=== PATIENT | female | born 1980 | race Two or more races ===

== ENCOUNTER 2025-01-14 04:26 | Inpatient (IN) | payer SELFPAY ==
[2025-01-14] VITALS (117 sets, daily range): BP systolic 00–300; BP diastolic 0–300; PULSE 55–203; RESP 0–54; TEMP 25–36.5; O2SAT 7–100; BMI 29.0
--- NOTE | 2025-01-14 04:35 | XR_ITS ---
Examination: CT brain head without contrast. 2-D sagittal coronal reconstructions Date and time of exam: January 14, 2025, 0511 hrs. Indications: Patient found down unconscious today, cardiopulmonary arrest CTDI: vol (mGy):48.7 DLP: (mGycm):994 Technique: Multiple CT axial sections of the brain have been obtained, 5 mm slice thickness. Contrast has not been administered. 2-D sagittal, coronal reconstructions have been obtained Low dose protocols were performed. One or more of the following dose reduction techniques were used; automated exposure control, adjustment of the mA and/or KV according to patient size, use of iterative reconstruction technique. Findings: No significant ventricular enlargement. Intra-axial or extra-axial hemorrhage density is not seen. No mass effect or midline shift Basal cisterns are not remarkable. Fourth ventricle is midline. Cranial vault intact. Acute ethmoid sinusitis Impression: Negative for acute hemorrhage, mass effect or midline shift As clinically warranted, brain MRI follow-up would best assess for anoxic/ischemic change
--- NOTE | 2025-01-14 04:36 | PD.EDAMS ---
Altered Mental Status RME/HPI General Chief Complaint: Altered Mental Status Stated Complaint: CODE BLUE RME / HPI RME / HPI narrative: Approximately [age]-old female found down for an unknown length of time. Patient originally had pulses with a blood sugar 23. An IV was established and D10 was started. The paramedics the last pulse was in the rig. She was in PEA. CPR was initiated. Patient received 1 mg and epinephrine IV. Paramedics regained pulses upon arrival here to the emergency room. Upon arrival blood sugar was 119. Patient is still unresponsive. They picked the patient up from a house. The people at the house knew very little about this patient. History was obtained from the paramedics and is extremely limited. Patient was intubated and route by paramedics with an 8.0 endotracheal tube. Patient was given Narcan 2 mg intranasally in the field by paramedics with no effect. Related Data Allergies Allergy/AdvReac Type Severity Reaction Status Date / Time No Known Drug Allergies Allergy Verified 01/14/25 04:40 Review of Systems Review of Systems ROS Unobtainable: unobtainable due to mental status ED Exam Narrative Physical exam: Generally patient is comatose, head is normocephalic atraumatic, eyes show pupils to be fixed and dilated, heart tachycardic rate with regular rhythm, oropharynx show the patient be intubated with an 8.0 endotracheal tube placed at 23 cm at the lips with equal breath sounds bilaterally, abdomen slightly distended and tympanic without wound, extremities show muscle wasting to bilateral lower extremities with scar near the right ankle. No edema. Neurologic exam Manjeet Coma Scale is 3 with pupils fixed and dilated. Rectal exam showed dark-colored stool, guaiac positive. Course Quality Measures none Orders Category Date Time Status Bedside COVID-19 Antigen Test NOW Care 01/14/25 05:41 Active Bedside Influenza A&B Antigen Test NOW Care 01/14/25 05:41 Completed EKG (ED ONLY) *Do not use* NOW Care 01/14/25 04:35 Completed Emergency Titration Protocol Stat Care 01/14/25 05:27 Ordered Patterson [Urinary Catheter] QS Care 01/14/25 04:48 Active Insert IV NOW Care 01/14/25 04:48 Active Transfuse,blood/blood products NOW Care 01/14/25 05:[address] abdomen pelvis wo con Stat Exams 01/14/25 05:[address] head/brain wo con Stat Exams 01/14/25 04:35 Taken EKG (ED Only) Stat Exams 01/14/25 04:35 Ordered XR chest 1V post procedure Stat Exams 01/14/25 04:41 Taken ABG [Arterial Blood Gas] Stat Lab 01/14/25 04:39 Ordered Alcohol, Blood Medical Stat Lab 01/14/25 04:30 Completed CBC Stat Lab 01/14/25 04:30 Completed CMP [Comprehensive Metabolic Panel] Stat Lab 01/14/25 04:30 Completed Drug Screen,Urine Stat Lab 01/14/25 04:33 Ordered HCG,Qualitative Serum Stat Lab 01/14/25 04:30 Completed PTT [Partial Thromboplastin Time] Stat Lab 01/14/25 06:07 Ordered Prothrombin Time with INR Stat Lab 01/14/25 06:07 Ordered Sputum Culture and Gram Stain Stat Lab 01/14/25 04:40 Ordered Troponin I Stat Lab 01/14/25 04:30 Completed Type and Screen Stat Lab 01/14/25 05:09 Results UA [Urinalysis] Stat Lab 01/14/25 04:34 Ordered prbc [Red Blood Cells] Stat Lab 01/14/25 05:09 Results Calcium Chloride 10% Abboject 10 ml Med 01/14/25 04:40 Discontinued Sodium Chloride 0.9% [Ns] 100 ml IV X1 Dextrose 50% Syr [D50w Syringe Abboject] Med 01/14/25 04:40 Discontinued 50 ml IVP X1 ONE Norepinephrine/D5W 8mg/250ml [Levophed in D5W 8mg/250ml Med 01/14/25 04:45 Discontinued ] 8 mg in 250 ml IV .STK-MED Norepinephrine/D5W 8mg/250ml [Levophed in D5W 8mg/250ml Med 01/14/25 04:48 Active ] 8 mg in 250 ml IV 0.05 mcg/kg/min Pantoprazole/Ns 80Mg IV Premix [Protonix/NS 80mg IV Med 01/14/25 06:12 Active Premix] 80 mg in 100 ml IV X1 Pantoprazole/Ns 80Mg IV Premix [Protonix/NS 80mg IV Med 01/14/25 06:12 Pending Premix] 80 mg in 100 ml IV X1 Sodium Chloride Rt Jennifer 10% [NS Rt Jennifer 10%] Med 01/14/25 04:38 Discontinued 5 ml INH X1 ONE Vasopressin in Ns Ivpb [Vasostrict/Ns Ivpb] Med 01/14/25 05:40 Discontinued 20 unit in 100 ml IV .STK-MED Vasopressin in Ns Ivpb [Vasostrict/Ns Ivpb] Med 01/14/25 05:39 Active 20 unit in 100 ml IV 0.04 unit/min Mechanical [Volume Ventilator] Stat RT 01/14/25 Active Sputum Induction PRN RT 01/14/25 04:45 Ordered Vital Signs Vital signs: Vital Signs Temperature 96.3 F L 01/14/25 04:29 Pulse Rate 137 H 01/14/25 04:29 Respiratory Rate 15 01/14/25 04:29 Altered Mental Status MDM Narrative MDM Narrative:: I interpreted all labs. EKG shows sinus tachycardia at a rate of [address] segment elevation. Upon arrival the patient's blood sugar was 119. Patient was bolused with 1 amp of D50 IV. On the supposition that the patient was in PEA due to hyperkalemia the patient was given calcium chloride 1000 mg IV. Patient had an episode of hypotension here in the emergency room with a blood pressure of 60s over 20s. Patient was bolused with 1 mg of epinephrine IV which helped increase the blood pressure to 115/74. Hemoglobin came back at 3.4. Patient will be typed and crossed and transfused with 4 units of packed RBCs. Patient has become hypotensive here in the emergency room requiring Levophed drip for a target MAP of 65. Patient is overbreathing the vent but continues to have a Manjeet Coma Scale of 3 without sedation. Ventilator settings given respiratory therapy were tidal volume of 450, rate of 16, FiO2 of 100% and a PEEP of 5. PEEP will be shut off if the patient continues to be hypotensive. Patient will be given uncrossed match blood for the first 2 units in an attempt to increase the blood pressure. Stools were guaiac positive and output from the OG tube showed coffee grounds. CAT scan of the brain showed no bleed no midline shift. Case has been discussed with the hospitalist who discussed that with the resident on-call for the ICU and the patient will require obvious ICU admission for further treatment and evaluation for her alteration of mental status with fixed and dilated pupils with anemia and GI bleed. Procedure note: Because the patient was on vasopressors and requiring additional lines for blood transfusion, I placed a right femoral vein triple-lumen central line catheter using maximum sterile technique and barrier here in the emergency room. Blood return was obtained from all 3 ports and all 3 ports were flushed with normal saline and the line was sutured in place and sterilely dressed. I discussed this case with the ICU who will admit this patient to the hospital for further treatment and evaluation. They are awaiting results of the CT scan of the abdomen and pelvis. Potassium came back at 4.9. CO2 is less than 10. CT scan done of the abdomen and pelvis without contrast is currently pending reading by radiology but did show a moderately sized right-sided pleural effusion. Patient was started on a Protonix drip after being given Protonix 80 mg IV. Patient data External records reviewed:: EMS form Clinical information provided by:: EMS Social determinants that could affect healthcare access:: none Patient has the following chronic illnesses:: unknown How is presenting disease/condition affected by chronic disease/condition?: no chronic disease Evaluation data The following diagnostics were reviewed and interpreted by me:: other (specify) Lab and/or radiology exams considered but not ordered:: none Interpretation Summary: None Medications / Prescriptions Medications or Prescriptions considered but not ordered:: None Medication administrations:: Medication Administration History Norepinephrine/Dextrose (Levophed In D5w 8mg/250ml) 8 mg in 250 mls @ 5.719 mls/hr IV .Q24H PRN; Protocol PRN Reason: PER PROTOCOL Stop: 02/13/25 04:47 Last Titration: 01/14/25 05:28 Dose: 0.5 mcg/kg/min, 57.188 mls/hr Documented By: [email or web address] Titration: 01/14/25 05:18 Dose: 0.11 mcg/kg/min, 12.581 mls/hr Documented By: [email or web address] Titration: 01/14/25 05:13 Dose: 0.09 mcg/kg/min, 10.294 mls/hr Documented By: [email or web address] Titration: 01/14/25 05:08 Dose: 0.07 mcg/kg/min, 8.006 mls/hr Documented By: [email or web address] Admin: 01/14/25 04:57 Dose: 0.05 mcg/kg/min, 5.719 mls/hr Documented By: [email or web address] Vasopressin/Sodium Chloride (Vasostrict/Ns Ivpb) 20 unit in 100 mls @ 12 mls/hr IV .Q8H20M PRN; Protocol PRN Reason: PER PROTOCOL Stop: 02/13/25 05:38 Last Admin: 01/14/25 05:55 Dose: 0.04 unit/min, 12 mls/hr Documented By: NAHUM Pantoprazole Sodium (Protonix/Ns 80mg Iv Premix) 80 mg in 100 mls @ 400 mls/hr IV X1 ONE Stop: 01/14/25 06:26 Pantoprazole Sodium (Protonix/Ns 80mg Iv Premix) 80 mg in 100 mls @ 10 mls/hr IV X1 ONE Stop: 01/14/25 16:11 Discontinued Medications Dextrose (Dextrose 50%-Water Inj 50 Ml Syringe) 50 ml IVP X1 ONE Stop: 01/14/25 04:41 Last Admin: 01/14/25 04:42 Dose: 50 ml Documented By: NAHUM Calcium Chloride 10 ml/ Sodium (Chloride) 110 mls @ 110 mls/hr IV X1 ONE Stop: 01/14/25 05:39 Last Infusion: 01/14/25 05:42 Dose: Infused Documented By: Admin: 01/14/25 04:42 Dose: 110 mls/hr Documented By: NAHUM Norepinephrine/Dextrose (Levophed In D5w 8mg/250ml) Confirm Administered Dose 8 mg in 250 mls @ ud IV .STK-MED ONE Stop: 01/14/25 04:46 Last Admin: 01/14/25 04:59 Dose: Not Given Documented By: NAHUM Non-Admin Reason: Discontinued Vasopressin/Sodium Chloride (Vasostrict/Ns Ivpb) Confirm Administered Dose 20 unit in 100 mls @ ud IV .STK-MED ONE Stop: 01/14/25 05:41 Last Admin: 01/14/25 05:56 Dose: Not Given Documented By: NAHUM Non-Admin Reason: override med Sodium Chloride (Sodium Chloride Rt 10% 15 Ml Nebu) 5 ml INH X1 ONE Stop: 01/14/25 04:39 None Consultations Consultation(s) initiated? (list below): Yes Diagnosis Most likely diagnosis given after review of the tests above:: None Admission Indicated Admission indicated?: indicated Admission Request Was there a request for admission?: Yes Admission Attestation Admission request attestation: Discussed case with [] from Hospitalist service regarding admission. Discussed patients ED course, exam findings, labs, and radiology results. The Hospitalist [agrees,declines] to accept the patient for admission. Disposition Plan Disposition Plan: Admit Critical Care Time Critical Care Time Critical Care Time: Yes Total Critical Care Time (min.): 75 Attestation: Excluding other billable procedures Discharge Plan Plan Patient Disposition: Admit Acute Care w/in Hospital Prescriptions/Referrals Referrals: No Primary/Family,Physician [Primary Care Provider] - In 1 week Problem List Clinical Impression: Cardiopulmonary arrest, Anemia, Hypovolemia, Upper gastrointestinal bleed, Coma Patient/Caregiver Discharge Instructions Print Language: Thai Stand Alone Forms: [facility] Award Info., Patient Portal Info Letter
--- NOTE | 2025-01-14 04:41 | XR_ITS ---
Examination: AP chest single view Technique: AP portable supine chest single view Date and time: January 14, 2025, 0439 hrs. Indications: Hypoxic respiratory failure, patient found down unconscious today post intubation Findings: Orogastric tube is at the origin of the right mainstem bronchus Opacity in the right lung which may represent aspiration pneumonia with layering right pleural fluid Orogastric tube is in the stomach, the tip is below the level of the film Normal heart size Impression: Retract the endotracheal tube 4 cm
[2025-01-14] MEDS: SODIUM CHLORIDE 0.9% IV (04:42)
[2025-01-14] MEDS: CALCIUM CHLORIDE 10% IV (04:42)
[2025-01-14] MEDS: DEXTROSE 50%-WATER INJ 50 ML SYRINGE IVP (04:42)
[2025-01-14 04:46] LABS: Basophils # (Auto) 0.0 Thou/mm3 (0.0-0.2); Basophils % (Auto) 0 % (0-2.5); Eosinophils # (Auto) 0.0 Thou/mm3 (0.0-0.5); Eosinophils % (Auto) 0 % (0-10); Immature Granulocytes Auto 0.37 Thou/mm3 (0.00-0.00); Lymphocytes # (Auto) 2.0 Thou/mm3 (1.0-4.8); Lymphocytes % (Auto) 24 % (10-50); Mean Corpuscular HGB Conc 25.6 g/dl (31.0-37.0); Mean Corpuscular Hemoglobin 21.0 pg (25.0-35.0); Mean Corpuscular Volume 82 fL (80-100); Monocytes # (Auto) 0.5 Thou/mm3 (0.0-0.8); Monocytes % (Auto) 6 % (0-12); Neutrophils # (Auto) 5.6 Thou/mm3 (1.8-7.7); Neutrophils % (Auto) 66 % (37-80); Nucleated Red Blood Cell # 0.71 Thou/mm3 (0.00-0.00); Nucleated Red Blood Cell % 8 /100 WBC (0); Platelet Count 84 Thou/mm3 (140-440); RDW Standard Deviation 78.3 fL (36.4-46.3); Red Blood Count 1.62 Miln/mm3 (4.00-5.20); White Blood Count 8.4 Thou/mm3 (3.6-11.0)
[2025-01-14] MEDS: Norepinephrine/D5W 8mg/250ml 8 MG/250 ML BAG 5.719 MG IV (04:57)
[2025-01-14 04:58] LABS: Hematocrit 13.3 % (36.0-46.0); Hemoglobin 3.4 g/dL (12.0-16.0)
--- NOTE | 2025-01-14 05:00 | XR_ITS ---
Examination: CT abdomen and pelvis without contrast. Coronal 3-D reconstructions. Sagittal 2-D reconstructions. Date and time of exam: January 10002024, 0513 hrs. Indications: Patient found down unconscious today with abdominal discomfort and distention CTDI: vol (mGy): 11.5 DLP: (mGycm): 630 Technique: Axial images of the abdomen have been obtained, 3 mm slice thickness Intravenous contrast material has not been administered. Low dose protocols were performed. One or more of the following dose reduction techniques were used; automated exposure control, adjustment of the mA and/or KV according to patient size, use of iterative reconstruction technique. Findings: Bibasilar pneumonia Large right mild left pleural effusions Cirrhosis, liver nodular in contour Abnormal radiodensity throughout the liver which could represent numerous small metastases versus small cystlike lesions Absent gallbladder Mild ascites Spleen is not enlarged Orogastric tube in the stomach No pancreatic mass No renal or ureteral calculi, no hydronephrosis There are fluid distended small bowel loops Aorta normal size No pelvic mass Urinary bladder is contracted around a Patterson catheter Partial visualization of what appears to be normal appendix coronal image 73 Impression: Bibasilar pneumonia Large right pleural effusion Cirrhosis with markedly abnormal radiodensity throughout the liver, recommend MRI abdomen liver follow-up pre and postcontrast to exclude numerous hepatic lesions, either multifocal primary hepatocellular carcinoma or hepatic metastases Mild ascites Fluid distended small bowel loops, consider ileus enteritis early small bowel obstruction not excluded, clinical correlation advised Air distended right colon, also clinical correlation advised
--- NOTE | 2025-01-14 05:33 | PRELIM_ITS ---
CT scan of the head without intravenous contrast (axial sections with sagittal and coronal reformats). January 14, 2025 0511 hours Clinical History: Altered mental status Comparison: None Findings: There is involutional atrophy of the cerebral hemispheres and cerebellum. There is no intracranial hemorrhage, extra-axial collection, mass, mass-effect or midline shift. There is good sanford-white differentiation. There is no CT evidence of acute large vascular territorial infarct. Ventricles are not enlarged or effaced. Visualized paranasal sinuses and tympanomastoid cavities are clear for bilateral posterior ethmoid air cell and sphenoid sinus fluid/mucosal thickening dependently. The bony calvarium is intact. Impression: No intracranial hemorrhage, mass-effect or midline shift. No CT evidence of acute large vascular territorial infarct. Report Electronically Signed By: Florencio Navarro 01/14/2025 5:32:09 AM [EST]
[2025-01-14] MEDS: VASOPRESSIN IN NS IVPB 20 UNIT/100 ML BAG 12 UNIT IV (05:55)
[2025-01-14 05:56] LABS: HCG,Qualitative Serum Negative
[2025-01-14 06:02] LABS: Alanine Aminotransferase 167 U/L (10-49); Albumin, Serum 2.2 gm/dL (3.5-5.0); Albumin/Globulin Ratio 0.8 (1.2-2.2); Alcohol, Blood Medical 292.6 mg/dL (0-10.0); Alkaline Phosphatase 169 U/L (46-116); Anion Gap 30 (7-16); BUN/Creatinine Ratio 11 Ratio (12-20); Bilirubin,Total 3.9 mg/dL (0.3-1.2); Blood Urea Nitrogen 17 mg/dL (9-23); Calcium 8.0 mg/dL (8.3-10.6); Calcium (Corrected) 9.4 mg/dL (8.5-10.1); Chloride 99 mMol/L (98-107); Creatinine (Component) 1.6 mg/dL (0.6-1.3); Estimated Creatinine Clearance 35.1 mL/min (>60); Globulin 2.9 gm/dL (2.3-3.5); Glucose 245 mg/dL (74-106); Osmolality,Calculated 287 (275-295); Potassium 4.9 mMol/L (3.4-5.1); Sodium 139 mMol/L (136-145); Total Protein 5.1 gm/dL (5.7-8.2); Troponin I 0.022 ng/mL (0.0-0.045); eGFR 42 See Note
[2025-01-14 06:06] LABS: Carbon Dioxide < 10.0 mMol/L (20.0-31.0)
--- NOTE | 2025-01-14 06:09 | EVENTNT_ITS ---
Documentation for date of: 01/14/25 Event Note Event Note: Received a call regarding a patient for potential ICU admission. The ED physician mentioned that the full workup is not yet complete, but he wanted to provide a heads-up with a sign-out. The patient is an estimated [age]-old female who was found unresponsive for an unknown duration. The history is very limited, primarily taken from the EMS sign-out and chart review. The individuals at the house had minimal information about the patient. Upon EMS arrival, the patient's blood sugar was 23, and she initially had a pulse. An IV was established, and D10 was administered. However, the patient lost her pulse en route and went into PEA. CPR was initiated, and 1 mg of epinephrine was administered. ROSC was achieved upon arrival at the emergency department. On arrival, the patient's blood sugar was 119, but she remained unresponsive with a GCS of 3 and was intubated. Her pupils were fixed and dilated. The patient became hypotensive in the emergency department, prompting the initiation of a Levophed drip. The ED physician noted that additional vasopressin may be required as the patient's pressor support needs continue to increase. The patient tested guaiac positive, and an OG tube was placed, which showed coffee-ground emesis. The patient will receive uncrossed matched blood for the first two units as an attempt to improve her blood pressure. The CMP is still pending, but the CBC revealed a hemoglobin level of 3.4 and hematocrit of 13.3. An ABG, CMP, toxicology screen, and CT scans of the abdomen, pelvis, and chest are still pending. A preliminary head CT was negative for hemorrhage, mass, or midline shift. The case was discussed with the attending physician, and the decision was made to wait for the remaining labs and Abdomen/Pelvis CT results before proceeding for concern of major hemorrhagic bleed of undetermined cause which may require higher level of care. We will sign out the case to a day shift, and hopefully by that time, the CT results and additional lab reports should be available. Patient care was discussed with attending physician Dr. Meme Castano MD PGY-2 I have carefully reviewed this document. Due to imperfections in the voice softw are, there could be grammatical errors including phonetic/typographic errors. This in no way compromises the medical care the patient is receiving
[2025-01-14 06:16] LABS: Aspartate Amino Transferase 1092 U/L (0-34)
[2025-01-14] MEDS: PANTOPRAZOLE/NS 80MG IV PREMIX 80 MG/100 ML BAG 400 MG IV (06:20)
--- NOTE | 2025-01-14 06:34 | PRELIM_ITS ---
CT scan of the abdomen and pelvis without intravenous contrast (axial sections with sagittal and coronal reformats) January 14, 2025 0513 hours Clinical History: abdominal distention Comparison:No prior study is available for comparison. Findings: There is a moderate right and small left pleural effusions with associated compressive atelectasis of bilateral lower lobes. There is consolidation in the left lower lobe. The liver demonstrates an innumerable hypodensities and nodular contour, likely representing cirrhosis. The nasogastric catheter is appropriately positioned with its tip in the stomach.There is surgical clips at the gallbladder bed with a stump/GB-like structure noted. The pancreas, spleen, kidneys and adrenals are unremarkable.on this noncontrast study. There is thickening of the duodenal and proximal jejunal wall with fat stranding. No evidence of bowel obstruction. The appendix is within normal limits. There is no mesenteric or retroperitoneal adenopathy. A Patterson catheter is seen in the urinary bladder.There is no free air. There is mild ascites. The uterus and adnexa are unremarkable. The osseous structures are unremarkable. Impression: Innumerable hypodensities which may represent extensive cystic disease versus metastasis. Recommend clinical correlation, comparison with prior studies and follow-up with contrast-enhanced CT/ MRI, if clinically indicated. Liver Cirrhosis. Enteritis. Mild ascites Moderate right and small left pleural effusions. Consolidation in the left lower lobe; pneumonia cannot be excluded. Recommend clinical correlation and follow-up. Other findings as described above. Report Electronically Signed By: Addy Jasso 01/14/2025 6:33:50 AM [EST]
[2025-01-14] MEDS: PANTOPRAZOLE/NS 80MG IV PREMIX 80 MG/100 ML BAG 10 MG IV (06:41)
[2025-01-14 06:43] LABS: Base Excess -28 (-3-3); HCO3 6 mEq/L (20-26); Inspired Oxygen, FIO2 100 %; O2 Saturation 61 % (91-98); PCO2 44 mmHg (32.0-48.0)
[2025-01-14 06:45] LABS: Path Review Blood Smear Sent to Pathologist
[2025-01-14 06:46] LABS: pH, Arterial 6.72 (7.35-7.45)
[2025-01-14 06:47] LABS: Allen Test Not Performed; PO2 54 mmHg (83-108); Puncture Site Left Radial
[2025-01-14 06:52] LABS: INR 1.9 (0.9-1.3); Partial Thromboplastin Time 49.5 Seconds (22.0-36.0); Prothrombin Time 18.8 Seconds (9.0-12.2)
[2025-01-14] MEDS: ROCURONIUM INJ 10 MG/ML VIAL 10 ML 60 MG IVP (07:30)
--- NOTE | 2025-01-14 07:51 | PC.NURSE ---
PER DR. Merrick FRAUSTO OK TO GIVE 3RD UNIT OF PRB'S AT RATE OF 999ML/HR.
[2025-01-14] MEDS: RINGERS LACTATED 1000 ML 1,000 ML 999 ML IV (08:30)
[2025-01-14] MEDS: SODIUM BICARB INJ 8.4% 1 mEq/ML 50 ML VIAL 50 MEQ IV ×4 (08:30→17:57)
[2025-01-14 08:38] LABS: Basophils # (Auto) 0.1 Thou/mm3 (0.0-0.2); Basophils % (Auto) 1 % (0-2.5); Eosinophils # (Auto) 0.0 Thou/mm3 (0.0-0.5); Eosinophils % (Auto) 0 % (0-10); Hematocrit 32.4 % (36.0-46.0); Hemoglobin 9.1 g/dL (12.0-16.0); Immature Granulocytes Auto 0.16 Thou/mm3 (0.00-0.00); Lymphocytes # (Auto) 1.9 Thou/mm3 (1.0-4.8); Lymphocytes % (Auto) 24 % (10-50); Mean Corpuscular HGB Conc 28.1 g/dl (31.0-37.0); Mean Corpuscular Hemoglobin 25.5 pg (25.0-35.0); Mean Corpuscular Volume 91 fL (80-100); Monocytes # (Auto) 0.2 Thou/mm3 (0.0-0.8); Monocytes % (Auto) 3 % (0-12); Neutrophils # (Auto) 5.3 Thou/mm3 (1.8-7.7); Neutrophils % (Auto) 70 % (37-80); Nucleated Red Blood Cell # 0.99 Thou/mm3 (0.00-0.00); Nucleated Red Blood Cell % 13 /100 WBC (0); RDW Standard Deviation 63.1 fL (36.4-46.3); Red Blood Count 3.57 Miln/mm3 (4.00-5.20); White Blood Count 7.6 Thou/mm3 (3.6-11.0)
[2025-01-14 08:43] LABS: Platelet Count 68 Thou/mm3 (140-440); Slide Review Platelets confirmed
[2025-01-14 09:02] LABS: Alanine Aminotransferase 530 U/L (10-49); Albumin, Serum 2.4 gm/dL (3.5-5.0); Albumin/Globulin Ratio 0.7 (1.2-2.2); Alkaline Phosphatase 194 U/L (46-116); Anion Gap 24 (7-16); BUN/Creatinine Ratio 11 Ratio (12-20); Bilirubin,Total 4.0 mg/dL (0.3-1.2); Blood Urea Nitrogen 19 mg/dL (9-23); Calcium 8.5 mg/dL (8.3-10.6); Calcium (Corrected) 9.8 mg/dL (8.5-10.1); Chloride 101 mMol/L (98-107); Creatinine (Component) 1.8 mg/dL (0.6-1.3); Estimated Creatinine Clearance 31.2 mL/min (>60); Globulin 3.5 gm/dL (2.3-3.5); Glucose 123 mg/dL (74-106); Magnesium 2.0 mg/dL (1.6-2.6); Osmolality,Calculated 273 (275-295); Potassium 4.9 mMol/L (3.4-5.1); Sodium 135 mMol/L (136-145); Total Protein 5.9 gm/dL (5.7-8.2); eGFR 36 See Note
[2025-01-14 09:09] LABS: Aspartate Amino Transferase 4045 U/L (0-34)
[2025-01-14 09:11] LABS: Ammonia 577 uMol/L (11-32)
[2025-01-14 09:12] LABS: Carbon Dioxide < 10.0 mMol/L (20.0-31.0); Phosphorous 10.7 mg/dL (2.4-5.1); Troponin I 0.100 ng/mL (0.0-0.045)
[2025-01-14] MEDS: ALBUTEROL/IPRATROPIUM (Duoneb) RT SOL 3 ML NEBU INH (09:19)
[2025-01-14 09:22] LABS: Base Excess -28 (-3-3); HCO3 4 mEq/L (20-26); Inspired Oxygen, FIO2 100 %; O2 Saturation 93 % (91-98); PCO2 26 mmHg (32.0-48.0); PO2 95 mmHg (83-108)
[2025-01-14 09:23] LABS: Allen Test Performed/OK; Puncture Site Right Brachial
[2025-01-14 09:25] LABS: pH, Arterial 6.83 (7.35-7.45)
[2025-01-14 09:33] LABS: Hepatitis A Antibody IgM Non Reactive (Non React); Hepatitis B Core Antibody IgM Non Reactive (Non React); Hepatitis B Surface Antigen Non Reactive (Non React); Hepatitis C Antibody Reactive (Non React)
--- NOTE | 2025-01-14 09:36 | PC.SS ---
ORTHOPEDIC SHOE [employer]TER informed by ICU charge nurse presence of patient without identification. ORTHOPEDIC SHOE [employer]TER contacted dispatch to confirm which ambulance service brought patient to ED. Dispatch will review records to confirm ambulance transporter. Once transport confirmed, ORTHOPEDIC SHOE [employer]TER will obtain address to submit request to law enforcement for department assistance to return to address to locate family/friends of the patient to contact ORTHOPEDIC SHOE [employer]TER.
--- NOTE | 2025-01-14 10:17 | PC.SS ---
Addendum entered by Aubree Bryson 01/14/25 10:35: SS attempted to check patient's persona artefacts in the attempt to locate identification. None found, patient only in position of shorts and T-shirt. No phone, no wallet present. Addendum entered by Aubree Bryson 01/14/25 10:32: SS follow up note; SS was contacted by Sofia from [facility] regarding patient found down in a home. Sofia provided physical address from which patient was picked up from [facility] address provided: [address] SS contacted [place] [employer] and requested department assistance. [place] [employer] dispatch will send available unit to confirm address and attempt to locate/identify next of kin in order to contact SS. Original Note: SS follow up note; SS contacted [facility] and spoke to Sofia. SS provided details of event, Sofia informed SS she would contact Ambulance unit covering at the time and would contact SS.
[2025-01-14] MEDS: Norepinephrine/D5W 8mg/250ml 8 MG/250 ML BAG 36.6 MG IV (10:28)
[2025-01-14] MEDS: RINGERS LACTATED 500 ML 500 ML 999 ML IV (10:36)
[2025-01-14 10:42] LABS: Path Review Blood Smear Sent to Pathologist
[2025-01-14] MEDS: OCTREOTIDE ACET INJ 1,000 MCG in SODIUM CHLORIDE 0.9% 100 ML 5.1 MCG IV (11:10)
[2025-01-14] MEDS: OCTREOTIDE ACET INJ 50 mCg/ML VIAL IV (11:10)
[2025-01-14 11:51] LABS: Lactate (Lactic Acid) 27.0 mMol/L (0.4-2.0)
--- NOTE | 2025-01-14 11:55 | PC.SS ---
Patient's friend, Kartik Martel [phone] arrived at ICU to identify patient. Friend informed SS that [place] PD arrived at residents instructing friend to make contact with SS at [facility]. Friend reports patient had been living at his residents for approximately one year. At baseline patient is ambulatory on Room air and able to complete ADL's independently. Friend reports that patient heavenly engage in Alcohol consumption. Friend provided Number to patient's brother Virgil [phone]. Friend will attempt to locate patient's identification and insurance card, if retrieved friend will bring items to ICU. Friend stated that prior to relocating to [place] patient was residing in [place]. SS to attempt phone contact with patient's brother Virgil. ICU charge Nurse provided with update. SS present as ICU Intens[facility] spoke to Patient's friend to obtain understanding of patient's alcohol consumption and events leading to admission.
[2025-01-14 11:56] LABS: Basophils # (Auto) 0.0 Thou/mm3 (0.0-0.2); Basophils % (Auto) 1 % (0-2.5); Eosinophils # (Auto) 0.0 Thou/mm3 (0.0-0.5); Eosinophils % (Auto) 0 % (0-10); Hematocrit 28.1 % (36.0-46.0); Immature Granulocytes Auto 0.14 Thou/mm3 (0.00-0.00); Lymphocytes # (Auto) 1.3 Thou/mm3 (1.0-4.8); Lymphocytes % (Auto) 18 % (10-50); Mean Corpuscular HGB Conc 29.5 g/dl (31.0-37.0); Mean Corpuscular Hemoglobin 25.9 pg (25.0-35.0); Mean Corpuscular Volume 88 fL (80-100); Monocytes # (Auto) 0.4 Thou/mm3 (0.0-0.8); Monocytes % (Auto) 5 % (0-12); Neutrophils # (Auto) 5.4 Thou/mm3 (1.8-7.7); Neutrophils % (Auto) 74 % (37-80); Nucleated Red Blood Cell # 1.18 Thou/mm3 (0.00-0.00); Nucleated Red Blood Cell % 16 /100 WBC (0); RDW Standard Deviation 53.6 fL (36.4-46.3); Red Blood Count 3.20 Miln/mm3 (4.00-5.20); White Blood Count 7.2 Thou/mm3 (3.6-11.0)
[2025-01-14] MEDS: ALBUMIN HUMAN-KJDA 25% IVPB 25 GM/100 ML BTL IV ×3 (11:57→18:17)
--- NOTE | 2025-01-14 12:01 | ESHP_ITS ---
Documentation for date of: 01/14/25 [facility] History of Present Illness Chief complaint: AMS History of present illness: This patient is a 44-year-old female with unknown past medical history was brought in by EMS on 01/14/2025 with chief complaint of altered mental status. Based on EMS and nursing from the ER, patient called EMS that she was not feeling well and while EMS went to see the patient they found her altered with a blood sugar of 29. 2 ampoules of D50 were given. Patient lost her pulses while en route to the ER and CPR was performed and they achieved ROSC. Patient was found obtunded in the ED with a GCS of 3 and was intubated to protect airway. Patient also rec narcan. Her blood pressure was unrecordable and was found to be 63/25 with pulse 137 temperature 96.3. Patient was eventually placed on Elizabeth hugger and started on levo and vasopressin with right femoral IJ line. Patient was bleeding from OG tube while seen during assessment. Patient received 2 units of PRBC in the ED. Limited history available. PMH unknown PSH unknown SH: Drinks alcohol moderately Allerg: unknown Home meds: unknown Patient's brother, Virgil's point of contact at [phone]. In the ED, patient's blood pressure was 63/25, heart rate 137, respiratory rate 15 and temperature is 96.3. Patient was intubated and mechanically ventilated. Labs revealed White count 8.4, hemoglobin 3.4--> downtrended to 5.4. Platelet count from 84--> 17. INR from 1.9-2.5. Fibrinogen 88, D-dimer> 3820. ABGs reveal pH 6.72--> 6.81. pCO2 44. pO2 60. Bicarb 17 chemistry panel showed initial sodium 139--> 148. Potassium 4.9--> 5.2. Bicarb less than 10. Anion gap increased to 40. BUN 21. Creatinine jumped up from 1.6-2.2. GFR 27. Blood glucose 361. Lactic acid from 27-31. Phosphorus 12.5. T. bili 2.3. AST from 1092--> 4045. Ammonia 577. Troponin I 0.100--> 0.138. Albumin 2.0. EtOH 292.6. Hep panel showed hep C antibody reactive. Head CT showed no acute pathology. Chest x-ray showed opacity in the right lung likely aspiration. CT abdomen showed bibasilar pneumonia, large right pleural effusion, cirrhosis with abnormal radiodensity throughout the liver. Possible hepatic mets. Mild ascites. Fluid distended small bowel loops. Air distended right colon. Chest x-ray showed significant bilateral pneumonia. Blood cultures pending as well as sputum cultures. Patient is admitted for acute encephalopathy likely in the setting of decompensated liver cirrhosis, acute GI bleed and alcoholic hepatitis. Review of Systems Review of Systems ROS Unobtainable: unobtainable due to mental status and due to endotracheal tube Past Medical History Social History ALCOHOL: Current Exam Vital Signs Temp Pulse Resp BP Pulse Ox O2 Del Method FiO2 97.1 F 96 36 H 116/42 L 94 L Mechanical Ventilation 100 01/14/25 11:41 01/14/25 11:41 01/14/25 11:41 01/14/25 11:41 01/14/25 11:41 01/14/25 07:25 01/14/25 10:16 Narrative Exam GENERAL APPEARANCE: Patient is intubated and mechanically ventilated. HEENT: Icteric, AT. dry mucus membrane. Pupils dilated sluggish reaction to light EOMI, Pallor and jaundice, oropharynx filled with blood alongwith Et tube. NECK: Supple without lymphadenopathy. No stiffness or restricted ROM. HEART: sinus tacycardia with regular rhythm, normal S1/S2, no m/r/g LUNGS: B/l basal crackles on both sides ,wheezing more on Rt side ABDOMEN: Soft, firm and distended with hypoactive bowel sounds. BACK: No CVAT, no obvious deformity. EXTREMITIES: Without cyanosis, clubbing or edema. NEUROLOGICAL: GCS 3T. Intubated and mech ventilated Skin: Warm and dry without any rash. Psych: intubated unable to assess Results: Labs 01/14/25 18:08 01/14/25 14:56 Labs: Short CBC 01/14/25 01/14/25 Range/Units 04:30 08:15 WBC 8.4 7.6 (3.6-11.0) Thou/mm3 Hgb 3.4 L* 9.1 L D (12.0-16.0) g/dL Hct 13.3 L* 32.4 L D (36.0-46.0) % Plt Count 84 L 68 L (140-440) Thou/mm3 BMP 01/14/25 01/14/25 04:30 08:15 Sodium 139 135 L Potassium 4.9 4.9 Chloride 99 101 Carbon Dioxide < 10.0 L* < 10.0 L* BUN 17 19 Creatinine 1.6 H 1.8 H Glucose 245 H 123 H D Calcium 8.0 L 8.5 Cardiac Enzymes 01/14/25 01/14/25 Range/Units 04:30 08:15 Troponin I 0.022 0.100 H* (0.0-0.045) ng/mL Liver Function 01/14/25 01/14/25 Range/Units 04:30 08:15 Total Bilirubin 3.9 H 4.0 H (0.3-1.2) mg/dL AST 1092 H* 4045 H* (0-34) U/L ALT 167 H 530 H* (10-49) U/L Alkaline Phosphatase 169 H 194 H D (46-116) U/L Albumin 2.2 L 2.4 L (3.5-5.0) gm/dL ABG Interpretation ABG results: 01/14/25 01/14/25 06:38 09:16 ABG pH 6.72 L* 6.83 L* D ABG pCO2 44 26 L D ABG pO2 54 L* 95 D ABG HCO3 6 L* 4 L* ABG O2 Saturation 61 L 93 ABG Base Excess -28 L -28 L Quality Measures Quality Measures none Medications Home Medications and Allergies Allergies Allergy/AdvReac Type Severity Reaction Status Date / Time No Known Drug Allergies Allergy Verified 01/14/25 04:40 Visit Medications Albumin Human (Albumin Human-Kjda 25% Ivpb 25 Gm/100 Ml Btl) 25 gm IV BID JENNIFER Stop: 02/13/25 08:59 Albuterol/Ipratropium (Albuterol/Ipratropium (Duoneb) Rt Jennifer 3 Ml Nebu) 3 ml INH Q2HR PRN PRN Reason: SHORTNESS OF BREATH OR WHEEZE Stop: 02/13/25 08:54 Dextrose (Dextrose 50%-Water Inj 50 Ml Syringe) 25 ml IV Q15MIN PRN PRN Reason: BG 50-70 responsive npo pt Stop: 02/13/25 08:22 Dextrose (Dextrose 50%-Water Inj 50 Ml Syringe) 50 ml IV Q15MIN PRN PRN Reason: BG <50 OR BG <70 & pt unresponsive Stop: 02/13/25 08:22 Folic Acid (Folic Acid Inj 1 Mg/0.2 Ml) 1 mg IVP QDAY JENNIFER Stop: 02/13/25 08:59 Glucagon (Glucagon Inj 1 Mg Vial) 1 mg IM Q15MIN PRN PRN Reason: BG <70, and no IV access Hydrocortisone Sodium Succinate (Hydrocortisone Sod Succ Inj 100 Mg 2 Ml Vial) 50 mg IV Q6HR JENNIFER Stop: 02/13/25 11:59 Norepinephrine/Dextrose (Levophed In D5w 8mg/250ml) 8 mg in 250 mls @ 5.719 mls/hr IV .Q24H PRN; Protocol PRN Reason: PER PROTOCOL Stop: 02/13/25 04:47 Last Admin: 01/14/25 10:28 Dose: 0.32 mcg/kg/min, 36.6 mls/hr Vasopressin/Sodium Chloride (Vasostrict/Ns Ivpb) 20 unit in 100 mls @ 12 mls/hr IV .Q8H20M PRN; Protocol PRN Reason: PER PROTOCOL Stop: 02/13/25 05:38 Last Titration: 01/14/25 07:25 Dose: 0.04 unit/min, 12 mls/hr Pantoprazole Sodium (Protonix/Ns 80mg Iv Premix) 80 mg in 100 mls @ 10 mls/hr IV X1 ONE Stop: 01/14/25 16:26 Last Admin: 01/14/25 06:41 Dose: 10 mls/hr Pantoprazole Sodium (Protonix/Ns 80mg Iv Premix) 80 mg in 100 mls @ 10 mls/hr IV Q10H JENNIFER Stop: 01/17/25 14:29 Octreotide Acetate 1,000 mcg/ (Sodium Chloride) 102 mls @ 5.1 mls/hr IV .Q20H JENNIFER; Protocol Stop: 01/19/25 08:02 Last Admin: 01/14/25 11:10 Dose: 50 mcg/hr, 5.1 mls/hr Azithromycin 500 mg/ Sodium (Chloride) 250 mls @ 250 mls/hr IV QDAY JENNIFER Stop: 01/21/25 08:14 Piperacillin/Tazobactam/Dextrose (Zosyn) 3.375 gm in 50 mls @ 12.5 mls/hr IV Q8HR JENNIFER; Protocol Stop: 01/21/25 10:22 Ondansetron HCl (Ondansetron Inj 2 Mg/Ml Inj 2 Ml) 4 mg IVP Q6H PRN; Protocol PRN Reason: NAUSEA OR VOMITING Stop: 02/13/25 07:56 Thiamine HCl (Thiamine Inj 100 Mg/Ml Vial 2 Ml) 100 mg IVP QDAY JENNIFER Stop: 02/13/25 08:59 Discontinued Medications Albuterol/Ipratropium (Albuterol/Ipratropium (Duoneb) Rt Jennifer 3 Ml Nebu) 3 ml INH X1 ONE Stop: 01/14/25 08:56 Last Admin: 01/14/25 09:19 Dose: 3 ml Dextrose (Dextrose 50%-Water Inj 50 Ml Syringe) 50 ml IVP X1 ONE Stop: 01/14/25 04:41 Last Admin: 01/14/25 04:42 Dose: 50 ml Calcium Chloride 10 ml/ Sodium (Chloride) 110 mls @ 110 mls/hr IV X1 ONE Stop: 01/14/25 05:39 Last Infusion: 01/14/25 05:42 Dose: Infused Pantoprazole Sodium (Protonix/Ns 80mg Iv Premix) 80 mg in 100 mls @ 400 mls/hr IV X1 ONE Stop: 01/14/25 06:26 Last Infusion: 01/14/25 06:35 Dose: Infused Ceftriaxone Sodium/Dextrose (Rocephin/D5w 1gm Iv Premix) 1 gm in 50 mls @ 100 mls/hr IV QDAY JENNIFER Stop: 01/21/25 08:02 Ceftriaxone Sodium/Dextrose (Rocephin/D5w 1gm Iv Premix) 1 gm in 50 mls @ 100 mls/hr IV QDAY JENNIFER Stop: 01/21/25 08:19 Lactated Ringer's (Lactated Ringers) 1,000 mls @ 999 mls/hr IV .Q1H1M ONE Stop: 01/14/25 09:24 Last Admin: 01/14/25 08:30 Dose: 999 mls/hr Lactated Ringer's (Lactated Ringers) 500 mls @ 999 mls/hr IV .Q31M ONE Stop: 01/14/25 10:49 Last Admin: 01/14/25 10:36 Dose: 999 mls/hr Piperacillin/Tazobactam/Dextrose (Zosyn) 3.375 gm in 50 mls @ 100 mls/hr IV X1 ONE; Protocol Stop: 01/14/25 11:29 Octreotide Acetate (Octreotide Acet Inj 50 Mcg/Ml Vial) 50 mcg IV X1 ONE Stop: 01/14/25 08:02 Last Admin: 01/14/25 11:10 Dose: 50 mcg Octreotide Acetate (Octreotide Acet Inj 50 Mcg/Ml Vial) 50 mcg IV X1 ONE Stop: 01/14/25 11:01 Rocuronium [place] (Rocuronium Inj 10 Mg/Ml Vial 10 Ml) 60 mg IVP X1 ONE Stop: 01/14/25 07:24 Last Admin: 01/14/25 07:30 Dose: 60 mg Sodium Bicarbonate (Sodium Bicarb Inj 8.4% 1 Meq/Ml 50 Ml Vial) 50 meq IV X1 ONE Stop: 01/14/25 08:03 Last Admin: 01/14/25 08:30 Dose: 50 meq Sodium Bicarbonate (Sodium Bicarb Inj 8.4% 1 Meq/Ml 50 Ml Vial) 50 meq IV X1 ONE Stop: 01/14/25 09:13 Last Admin: 01/14/25 09:15 Dose: 50 meq Sodium Bicarbonate (Sodium Bicarb Inj 8.4% 1 Meq/Ml 50 Ml Vial) 50 meq IV X1 ONE Stop: 01/14/25 09:37 Last Admin: 01/14/25 09:40 Dose: 50 meq Sodium Chloride (Sodium Chloride Rt 10% 15 Ml Nebu) 5 ml INH X1 ONE Stop: 01/14/25 04:39 Sodium Chloride (Sodium Chloride Rt 10% 15 Ml Nebu) 5 ml INH X1 ONE Stop: 01/14/25 08:09 Assessment & Plan Plan This patient is a 44-year-old female with unknown past medical history was brought in by EMS on 01/14/2025 with chief complaint of altered mental status.Patient is admitted to ICU for acute encephalopathy likely in the setting of decompensated liver cirrhosis, acute GI bleed and alcoholic hepatitis. Neurology #Acute encephalopathy likely multifactorial, DDx: Metabolic due to hypoglycemia toxic due to alcohol, ischemic, hyperammonemia Diagnostic Test: -Head CT showed no acute pathology. -BG 29 mg/dl. Ammonia 577.EtOH 292.6. Treatment Plan: 2 ampoules of D50 given Blood sugar checks Q1 hourly Intubated for airway protection Treatment Review: Blood sugars have improved Neurological status remains unchanged #Hyperamonemia - Ammonia: 577 Plan - Will likely consider placing rectal tube , decompress gut and give Lactulose NH Cardiovascular #Shock likely mixed hypovolemic and distributive DDx: Blood loss due to GI bleed in the setting of decompensated liver cirrhosis, infection possibly GI tract Diagnostic Test: Hemoglobin 3.4--> downtrended to 5.4. Platelet count from 84--> 17. Patient was started on Levophed and vasopressin in the ED. Patient received 2 L of fluid LR. ABGs reveal pH 6.72--> 6.81. pCO2 44. pO2 60. Treatment Plan: Continue Levophed, epinephrine and vasopressin titrate to maintain MAP above 65 Give fluids as necessary Treating infection with antibiotics Zosyn and azithromycin Massive transfusion protocol given: 6 PRBC 7 PRBC transfusing, 2 FFP's and 1 FFP ready, 4 cryoprecipitate's given and fifth cryoprecipitate running. 5 ready. Total 12 cryoprecipitate ordered. CRRT Treatment Review: Follow-up with H&H Q4 hourly Follow-up with lactic acid Follow-up with vitals #PEA - Achieved ROSC twice. - Patient received multiple amps of bicarb, amp of D50, 3 rounds of epi. Plan: -Patient's brother is the point of contact and he is aware about patient's CODE BLUE. - Point of contact is brother, Virgil to be called at [phone] - They would like to proceed with full code for now although they are aware on patient's current condition #NSTEMI type II likely supply/demand ischemia Troponin I 0.100--> 0.138. Treatment plan Troponin I every 6 hours EKG showed sinus tachycardia with no acute ST-T changes. #Lactic acidosis, mixed likely type A and type B Diagnostic test -Lactic acid more than 31 Treatment plan CRRT Continue monitoring lactic acid every 4 hourly Respiratory #Intubated and mechanically ventilated for airway protection #Aspiration pneumonia #Large right-sided pleural effusion DDx: Aspiration pneumonia, acute metabolic encephalopathy Diagnostic Test: -Chest x-ray showed opacity in the right lung likely aspiration. In the ED, patient's blood pressure was 63/25, heart rate 137, respiratory rate 15 and temperature is 96.3. Patient was intubated and mechanically ventilated. ABGs reveal pH 6.72--> 6.81. pCO2 44. pO2 60. Treatment Plan: Continue mechanical ventilation with AC/VC mode Continue antibiotics Aspiration precautions Treatment Review: Monitor mechanical ventilator settings Patient's GCS is 3 therefore we will continue with mechanical ventilation GI and F/E/N #Decompensated liver cirrhosis #Coagulopathy and elevated T. bili #Ascites #Hypoalbuminemia #Esophageal varices post banding #Dilated Rt colon - Patient does have a history of alcohol abuse. DDx: Diagnostic Test: -Labs revealed White count 8.4, hemoglobin 3.4--> downtrended to 5.4. Platelet count from 84--> 17. INR from 1.9-2.5. Fibrinogen 88, D-dimer> 3820. -EtOH 292.6. Albumin 2.0. -Hep panel showed hep C antibody reactive. -CT abdomen showed bibasilar pneumonia, large right pleural effusion, cirrhosis with abnormal radiodensity throughout the liver. Possible hepatic mets. Mild ascites. Fluid distended small bowel loops. Air distended right colon. AST from 1092--> 4045. T. bili 2.3. Treatment Plan: -GI consulted, Dr. Newell on board -Endoscopy showed esophageal varices post 3 bands with mucosal hyperemia. - Continue transfusing blood as needed, Protonix drip, octreotide drip, albumin 25 twice daily, thiamine and folic acid -Zosyn for SBP prophylaxis Treatment Review: - Follow-up with blood cultures - Follow-up with labs - Monitor for hypothermia or fever spikes #Alcoholic hepatitis #Hep C antibody positive Diagnostic test: T. bili elevated. EtOH level 292. Liver enzymes elevated, AST went up from 4676-0509. MDF 35.2, MELD-Na 24 [14-15% 90-day mortality]. Child santiago score 12. Treatment plan: Hydrocortisone 50 mg Q6 hourly Trend LFTs Avoid hepatotoxic agents Renal #Mixed acidosis, high anion gap metabolic acidosis plus non-anion gap metabolic acidosis with non compensatory respiratory acidosis DDx: Lactic acidosis, alcohol induced, GI losses, possible RTA Diagnostic Test: chemistry panel showed initial sodium 139--> 148. Potassium 4.9--> 5.2. Bicarb less than 10. Anion gap increased to 40. BUN 21. Creatinine went up from 1.6-2.2. GFR 27. Blood glucose 361. Lactic acid from 27-31. Phosphorus 12.5. Sosa formula: 21?25 Delta delta gap: 0.55 Treatment Plan: CRRT Bicarb ampules as needed Continue mechanical ventilation Treating underlying infection Treatment Review: Follow-up with lactic acid and ABGs #NEHEMIAS likely prerenal DDx: Blood loss, liver failure, DIC Diagnostic test BUN 21, creatinine went up 2.2 No urine output recorded Dialysis catheter placed Plan: Started CRRT Avoid nephrotoxic agents Renally dose medications Follow-up with renal panel #Hypernatremia #Hyperkalemia #Hyperphosphatemia Diagnostic test sodium 148, potassium 5.2, chloride 98, bicarb less than 10 Treatment plan plan: Continue CRRT Monitor electrolytes closely Heme #Acute blood loss anemia with hemorrhagic shock #Esophageal varices post banding #Thrombocytopenia #Hypocalcemia DDx: Esophageal varices due to decubs liver cirrhosis due to alcohol, DIC Diagnostic Test: Labs revealed White count 8.4, hemoglobin 3.4--> downtrended to 5.4. Platelet count from 84--> 17. INR from 1.9-2.5. Fibrinogen 88, D-dimer> 3820. Endoscopy revealed esophageal varices which were banded and mucosal hyperemia. Treatment Plan: Massive transfusion protocol given: 6 PRBC 7 PRBC transfusing, 2 FFP's and 1 FFP ready, 4 cryoprecipitate's given and fifth cryoprecipitate running. 5 ready. Total 12 cryoprecipitate ordered. Post esophageal varices banding Continue Protonix and octreotide Treatment Review: Follow-up with H&H Q4 hourly Transfuse 2 FFP's and 2 platelets after every 5 units of PRBC Always keep 3 PRBCs on hold Calcium gluconate after every 5 units of PRBC #DIC In the setting of decompensated liver cirrhosis and alcoholic hepatitis Diagnostic test Fibrinogen 88, D-dimer> 3820 Treatment plan: Continue massive transfusion protocol Follow-up with LDH, haptoglobin and peripheral smear Endo #Hypoglycemia DDx: Liver failure Diagnostic Test: Blood sugars dropped to 39 mg/dL. Recent 300 mg post ampules of D50. Treatment Plan: Hypoglycemia protocol as needed Treatment Review: Blood sugar checks Q1 hourly ID #Aspiration pneumonia #SBP Diagnostic Test: Chest x-ray showed aspiration pneumonia on right side. CT was significant for ascites and distended colon. Treatment Plan: Continue Zosyn and azithromycin Treatment Review: Follow-up blood cultures and sputum cultures #Skin #Bruising and bleeding from right side femoral line Plan: Continue transfusing platelets Monitor for bruising and bleeding DVT prophylaxis: SCDs removed due to DIC GI prophylaxis: Protonix drip, octreotide drip Diet: NPO Patterson: Present Lines: Peripherals and central Drips: Levophed, epinephrine and vasopressin Vent: AC/VC mode CODE STATUS: Full code Reason of hospitalization: Patient is admitted for acute metabolic encephalopathy, hemorrhagic and distributive shock and alcoholic hepatitis. Patient discussed with my attending, Dr. Manolo pereyra MD, PGY 3 Attending Provider Attestation/Addendum pt seen and examined with resident team. This is a unfortunate 44yo F who has been vomiting blood for the last 3 days. She had a Hb of 3 on arrival to the ER. She has been transfused PRBC. She was in shock and started on IVF and vasopressors. her LA was >31. She was started on abx for poss sepsis and aggresively resuscitated. She went into DIC and was transfused PLTs, FFP, given Ca and HCO3. attempt at femoral A line was made however the wire kept kinking and was unable to be advanced. She coded around 130p with ~20min prior to ROSC. Eventuall an axillary A line was established. She was actively bleeding from her R femoral TLC as well as additional puncture sites. An HD cath was placed for emergent dialysis for refractory acidosis. CT from ER was noted to show liver cirrhosis with pos masses. She developed shock liver, viral panel showed Hep C. There was severe thrombocytopenia. Her blood alcohol level was pos at 292 on arrival to the ER. GI performed an EGD and found 1 varix that was banded x3 but no active bleeding. There was general oozing from the mucosa. Ultimately despite massive effort the pt succumobed to her illness. Case d/w ICU team, nephrology, GI labs, imaging, records reviewed ~120ccmin required for eval, exam, review, multiple bedside interventions not including procedures, discussion and formulation of POC for this critical pt
[2025-01-14 12:03] LABS: D-Dimer > 3820 ng/mL (<600)
--- NOTE | 2025-01-14 12:05 | PC.SS ---
Addendum entered by Aubree Bryson 01/14/25 12:20: Brother, Virgil Santos; Is the patient's surrogate medical decision maker. [phone]. SS confirmed that ICU resident will contact patients brother to provide medical update as requested. Original Note: SS made phone contact with patient's brother Virgil Brother confirmed that he is able to make medical decision on behalf of the patient. SS provided patients brother update. Patient's brother requesting that medical team contact him to provide medical update on treatment plan and patient's condition. Brother acknowledge that medical team might have to conduct contact with him during his work hours. Patient's brother stated that he will field incoming calls in a timely manner as his work responsibilities permit.
[2025-01-14 12:18] LABS: Hemoglobin 8.3 g/dL (12.0-16.0); Platelet Count 55 Thou/mm3 (140-440)
[2025-01-14 12:24] LABS: Troponin I 0.138 ng/mL (0.0-0.045)
[2025-01-14 12:28] LABS: INR 2.5 (0.9-1.3); Partial Thromboplastin Time 94.5 Seconds (22.0-36.0); Prothrombin Time 24.7 Seconds (9.0-12.2)
[2025-01-14 12:35] LABS: Fibrinogen 88 mg/dL (175-375)
[2025-01-14 12:38] LABS: Slide Review Platelets confirmed
--- NOTE | 2025-01-14 12:45 | ESCONSULT_ITS ---
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 Patient was intubated and CPR was initiated by EMS and ROSC achieved before arrival to the hospital. Patient was given 1 mg of epinephrine at the time. 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 ED: At the ED patient was found to have [place] Coma Scale of 3, fixed dilated pupil and tachycardia with regular rhythm. Patient was intubated with 8.0 endotracheal tube placed at 23 cm from the lips. There was equal breath sound. Abdomen was tympanic without wounds, extremities showed muscle wasting, rectal examination showed dark-colored stool tested positive for fecal occult blood. Vital signs on arrival blood pressure of 63/25, pulse of 137, respiratory rate 15, temperature of 96.3, intubated and mechanically ventilated. WBC found to be 8.4, hemoglobin of 3.4, hematocrit of 13.3, MCV 82, platelets 84 initial coagulation panel showed PT of 18.8, INR of 1.9, PTT of 49.5, fibrinogen of 88, D-dimer of more than 3800. Her ABG showed pH of 6.72, CO2 44, pO2 of 54, HCO3 of 6, O2 saturation of 61. Sodium level was 139, potassium 4.9, chloride 99, anion gap of 30, BUN of 17, creatinine 1.6, glucose initially was 23 after D50 was given blood sugar was 245, calcium corrected 9.4, total bilirubin 3.9 AST 1092, ALT 167, alk phos 169, ammonia not performed, troponin 0.0 22, albumin 2.2. Beta-hCG negative blood alcohol level was 292.6, acute hepatic panel was positive for hepatitis C initial CT was negative for any acute hemorrhage or mass effect chest x-ray showed right pleural effusion, normal heart size, CT abdomen and pelvis without contrast showed bibasilar pneumonia, right pleural effusion, cirrhosis with marked radiodensities throughout the liver could be hepatic lesions?, Mild ascites, bowels of the small intestine distended SBO cannot rule out, air distended right colon. Patient was given 4 units of packed RBCs, was given 1 bolus of epinephrine, patient was also given she was also started on vasopressors through right femoral vein triple-lumen central line catheter. Patient was started also on Protonix drip. Patient was also given calcium chloride. ICU: Patient was admitted to the ICU and patient was started on an norepinephrine drip, vasopressin drip, patient was started also on Zosyn, azithromycin for possible associated pneumonia and aspiration. Patient was transfused 1 unit of platelets and 1 unit of fresh frozen plasma. Patient was started also on folic acid, octreotide drip, Zofran, sodium bicarbonate. PMH: Unknown PSX: Unknown PFX: Unknown Social hx: Alcohol: Unknown however patient was having alcohol level of 298.6 and blood sample Tobacco: Unknown Illicit drugs: Unknown Allergies: Unknown cc:: cc: Néstor Ryan MD Exam Vital Signs Temp Pulse Resp BP Pulse Ox O2 Del Method FiO2 97.1 F 98 36 H 80/40 L 94 L Mechanical Ventilation 100 01/14/25 11:45 01/14/25 11:45 01/14/25 11:45 01/14/25 11:45 01/14/25 11:41 01/14/25 07:25 01/14/25 10:16 Narrative Exam GEN: Intubated, not sedated [place] Coma Scale of 3 HEENT: NC/AC, icteric, fixed mid dilated, oral mucosa dry, blood clots around the mouth CVS: RRR, decreased S1-S2 present, no murmurs appreciated RESP: Diffuse bilateral wheezing and fine crepitations GI: Firm, distended, no fluid thrill MSK: No lower extremity edema, no obvious joint deformity or swelling SKIN: Mottling ski, cold extremities, [employer]ET [employer]OCK APPLICATOR: Fixed mid dilated pupil, no abnormal positioning no flexion or extension of the extremities. Results Labs 01/14/25 18:08 01/14/25 14:56 Labs: Short CBC 01/14/25 01/14/25 01/14/25 Range/Units 04:30 08:15 11:40 WBC 8.4 7.6 7.2 (3.6-11.0) Thou/mm3 Hgb 3.4 L* 9.1 L D 8.3 L (12.0-16.0) g/dL Hct 13.3 L* 32.4 L D 28.1 L (36.0-46.0) % Plt Count 84 L 68 L 55 L (140-440) Thou/mm3 BMP 01/14/25 01/14/25 04:30 08:15 Sodium 139 135 L Potassium 4.9 4.9 Chloride 99 101 Carbon Dioxide < 10.0 L* < 10.0 L* BUN 17 19 Creatinine 1.6 H 1.8 H Glucose 245 H 123 H D Calcium 8.0 L 8.5 Cardiac Enzymes 01/14/25 01/14/25 01/14/25 Range/Units 04:30 08:15 11:40 Troponin I 0.022 0.100 H* 0.138 H* (0.0-0.045) ng/mL Liver Function 01/14/25 01/14/25 Range/Units 04:30 08:15 Total Bilirubin 3.9 H 4.0 H (0.3-1.2) mg/dL AST 1092 H* 4045 H* (0-34) U/L ALT 167 H 530 H* (10-49) U/L Alkaline Phosphatase 169 H 194 H D (46-116) U/L Albumin 2.2 L 2.4 L (3.5-5.0) gm/dL ABG Interpretation ABG results: 01/14/25 01/14/25 06:38 09:16 ABG pH 6.72 L* 6.83 L* D ABG pCO2 44 26 L D ABG pO2 54 L* 95 D ABG HCO3 6 L* 4 L* ABG O2 Saturation 61 L 93 ABG Base Excess -28 L -28 L Quality Measures Quality Measures none Medications Home Medications and Allergies Allergies Allergy/AdvReac Type Severity Reaction Status Date / Time No Known Drug Allergies Allergy Verified 01/14/25 04:40 Visit Medications Albumin Human (Albumin Human-Kjda 25% Ivpb 25 Gm/100 Ml Btl) 25 gm IV BID JENNIFER Stop: 02/13/25 08:59 Last Admin: 01/14/25 11:57 Dose: 25 gm Albuterol/Ipratropium (Albuterol/Ipratropium (Duoneb) Rt Jennifer 3 Ml Nebu) 3 ml INH Q2HR PRN PRN Reason: SHORTNESS OF BREATH OR WHEEZE Stop: 02/13/25 08:54 Dextrose (Dextrose 50%-Water Inj 50 Ml Syringe) 25 ml IV Q15MIN PRN PRN Reason: BG 50-70 responsive npo pt Stop: 02/13/25 08:22 Dextrose (Dextrose 50%-Water Inj 50 Ml Syringe) 50 ml IV Q15MIN PRN PRN Reason: BG <50 OR BG <70 & pt unresponsive Stop: 02/13/25 08:22 Folic Acid (Folic Acid Inj 1 Mg/0.2 Ml) 1 mg IVP QDAY JENNIFER Stop: 02/13/25 08:59 Glucagon (Glucagon Inj 1 Mg Vial) 1 mg IM Q15MIN PRN PRN Reason: BG <70, and no IV access Hydrocortisone Sodium Succinate (Hydrocortisone Sod Succ Inj 100 Mg 2 Ml Vial) 50 mg IV Q6HR JENNIFER Stop: 02/13/25 11:59 Norepinephrine/Dextrose (Levophed In D5w 8mg/250ml) 8 mg in 250 mls @ 5.719 mls/hr IV .Q24H PRN; Protocol PRN Reason: PER PROTOCOL Stop: 02/13/25 04:47 Last Admin: 01/14/25 10:28 Dose: 0.32 mcg/kg/min, 36.6 mls/hr Vasopressin/Sodium Chloride (Vasostrict/Ns Ivpb) 20 unit in 100 mls @ 12 mls/hr IV .Q8H20M PRN; Protocol PRN Reason: PER PROTOCOL Stop: 02/13/25 05:38 Last Titration: 01/14/25 07:25 Dose: 0.04 unit/min, 12 mls/hr Pantoprazole Sodium (Protonix/Ns 80mg Iv Premix) 80 mg in 100 mls @ 10 mls/hr IV X1 ONE Stop: 01/14/25 16:26 Last Admin: 01/14/25 06:41 Dose: 10 mls/hr Pantoprazole Sodium (Protonix/Ns 80mg Iv Premix) 80 mg in 100 mls @ 10 mls/hr IV Q10H JENNIFER Stop: 01/17/25 14:29 Octreotide Acetate 1,000 mcg/ (Sodium Chloride) 102 mls @ 5.1 mls/hr IV .Q20H JENNIFER; Protocol Stop: 01/19/25 08:02 Last Admin: 01/14/25 11:10 Dose: 50 mcg/hr, 5.1 mls/hr Azithromycin 500 mg/ Sodium (Chloride) 250 mls @ 250 mls/hr IV QDAY JENNIFER Stop: 01/21/25 08:14 Piperacillin/Tazobactam/Dextrose (Zosyn) 3.375 gm in 50 mls @ 12.5 mls/hr IV Q8HR JENNIFER; Protocol Stop: 01/21/25 10:22 Ondansetron HCl (Ondansetron Inj 2 Mg/Ml Inj 2 Ml) 4 mg IVP Q6H PRN; Protocol PRN Reason: NAUSEA OR VOMITING Stop: 02/13/25 07:56 Thiamine HCl (Thiamine Inj 100 Mg/Ml Vial 2 Ml) 100 mg IVP QDAY JENNIFER Stop: 02/13/25 08:59 Discontinued Medications Albuterol/Ipratropium (Albuterol/Ipratropium (Duoneb) Rt Jennifer 3 Ml Nebu) 3 ml INH X1 ONE Stop: 01/14/25 08:56 Last Admin: 01/14/25 09:19 Dose: 3 ml Dextrose (Dextrose 50%-Water Inj 50 Ml Syringe) 50 ml IVP X1 ONE Stop: 01/14/25 04:41 Last Admin: 01/14/25 04:42 Dose: 50 ml Calcium Chloride 10 ml/ Sodium (Chloride) 110 mls @ 110 mls/hr IV X1 ONE Stop: 01/14/25 05:39 Last Infusion: 01/14/25 05:42 Dose: Infused Pantoprazole Sodium (Protonix/Ns 80mg Iv Premix) 80 mg in 100 mls @ 400 mls/hr IV X1 ONE Stop: 01/14/25 06:26 Last Infusion: 01/14/25 06:35 Dose: Infused Ceftriaxone Sodium/Dextrose (Rocephin/D5w 1gm Iv Premix) 1 gm in 50 mls @ 100 mls/hr IV QDAY JENNIFER Stop: 01/21/25 08:02 Ceftriaxone Sodium/Dextrose (Rocephin/D5w 1gm Iv Premix) 1 gm in 50 mls @ 100 mls/hr IV QDAY JENNIFER Stop: 01/21/25 08:19 Lactated Ringer's (Lactated Ringers) 1,000 mls @ 999 mls/hr IV .Q1H1M ONE Stop: 01/14/25 09:24 Last Admin: 01/14/25 08:30 Dose: 999 mls/hr Lactated Ringer's (Lactated Ringers) 500 mls @ 999 mls/hr IV .Q31M ONE Stop: 01/14/25 10:49 Last Admin: 01/14/25 10:36 Dose: 999 mls/hr Piperacillin/Tazobactam/Dextrose (Zosyn) 3.375 gm in 50 mls @ 100 mls/hr IV X1 ONE; Protocol Stop: 01/14/25 11:29 Octreotide Acetate (Octreotide Acet Inj 50 Mcg/Ml Vial) 50 mcg IV X1 ONE Stop: 01/14/25 08:02 Last Admin: 01/14/25 11:10 Dose: 50 mcg Octreotide Acetate (Octreotide Acet Inj 50 Mcg/Ml Vial) 50 mcg IV X1 ONE Stop: 01/14/25 11:01 Rocuronium [place] (Rocuronium Inj 10 Mg/Ml Vial 10 Ml) 60 mg IVP X1 ONE Stop: 01/14/25 07:24 Last Admin: 01/14/25 07:30 Dose: 60 mg Sodium Bicarbonate (Sodium Bicarb Inj 8.4% 1 Meq/Ml 50 Ml Vial) 50 meq IV X1 ONE Stop: 01/14/25 08:03 Last Admin: 01/14/25 08:30 Dose: 50 meq Sodium Bicarbonate (Sodium Bicarb Inj 8.4% 1 Meq/Ml 50 Ml Vial) 50 meq IV X1 ONE Stop: 01/14/25 09:13 Last Admin: 01/14/25 09:15 Dose: 50 meq Sodium Bicarbonate (Sodium Bicarb Inj 8.4% 1 Meq/Ml 50 Ml Vial) 50 meq IV X1 ONE Stop: 01/14/25 09:37 Last Admin: 01/14/25 09:40 Dose: 50 meq Sodium Chloride (Sodium Chloride Rt 10% 15 Ml Nebu) 5 ml INH X1 ONE Stop: 01/14/25 04:39 Sodium Chloride (Sodium Chloride Rt 10% 15 Ml Nebu) 5 ml INH X1 ONE Stop: 01/14/25 08:09 Assessment & Plan Plan Summary: A 44-year-old female patient with unknown past medical history was brought to the ED after she was found pulseless at her house most likely secondary to hemorrhagic shock found to have hemoglobin of 3.0. Patient resuscitated and ROSC was achieved patient was intubated and admitted to ICU. GI team was consulted because of possible GI bleed and acute fulminant hepatitis. 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 Hemoglobin was found to be 3.0 MCV was normal, patient was given 4 units of RBCs. On examination patient was found to be comatosed, jaundice, muscle wasting the upper and lower extremities, silky hair. Patient and most likely hypovolemic shock versus distributive shock. MAP persistently below 65, patient on 2 vasopressors and norepinephrine and vasopressin. Heart rate 110 regular rhythm. Platelets 83, PT 18.8, INR of 1.9 Initially was 1092, up trended to 4045, ALT initially was 167, up trended to 530 total bilirubin went up from 3.9-4.0 alk phos 194 albumin 2.4. Blood alcohol level was 292.6, serology showed hep C positive. initially and went up to one 2.5. And PT to 24.7, fibrinogen of 88. Sodium level of 135, serum creatinine initially 1.6 went up to 1.8. BUN with normal limits. 01/14/2025 Marde SCORE : 45.4 steroids tx recommended 01/14/2025 MELD-Na score 29, with mortlity rate in the next 3 months 19.6 [employer] classification: 2 Patient meet the criteria for transfer to a transplant center EGD was done at bedside, however patient was hemodynamically unstable to continue the procedure there was a pool of blood during the procedure Plan ?Arterial ammonia level x 1, ammonia above 200 is very concerning for cerebral edema. ?Monitor CBC every 6 hours transfuse as needed to keep hemoglobin above 7g/dL ?Continue the patient on steroid, we recommend prednisolone ?Continue Zosyn IV 3 times daily for GI prophylaxis ?Consider adding N-acetylcysteine IV empirically for alcoholic hepatitis ?We recommend screening the patient for acetaminophen and aspirin toxicity ?We recommend to continue monitoring ammonia level 2 times a day preferably arterial sample due to the high risk of brain edema ?Continue the patient on albumin 100 g to 1 over 24 hours ?Continue the patient on octreotide drip ?Continue patient on pantoprazole 40 mg twice daily ?Continue to maintain MAP above 70 mmHg ?Dialysis as per nephrology recommendations ?Folic acid, thiamine IV ?Neurocheck every 6 hours, be aware of withdrawal symptoms. Thank you for your consultation, please do not hesitate to reach out if you have any question or concern. - Patient's plan and care discussed with my attending, Dr. Reece Hidalgo MD Internal Medicine PGY-3 Attending Provider Attestation/Addendum Patient personally examined and evaluated by me Patient was examined in the ICU Acute upper GI bleed in the setting of alcoholic liver disease Consent obtained for fiberoptic esophagogastroduodenoscopy with possible biopsy possible therapeutic intervention under intravenous moderate sedation Will proceed with the procedure
[2025-01-14 12:51] LABS: AFP Non-Pregnant 1.90 ng/mL (<8.10)
[2025-01-14] MEDS: Sodium Bicarb Inj 8.4% SYR 50 ML SYRINGE IV ×4 (13:03→19:41)
--- NOTE | 2025-01-14 13:09 | XR_ITS ---
Examination: AP chest single view Technique one AP upright portable chest single view Date and time: January 14, 2025, 1325 hours, comparison January 14, 2025 0439 hours INDICATIONS: Adjustment endotracheal tube, hypoxic respiratory failure FINDINGS: Significant bilateral pneumonia especially left base, consider aspiration pneumonia Orogastric tube projects distal esophagus Endotracheal tube still projects at the adrian Layered right pleural fluid IMPRESSION: Significant bilateral pneumonia Retracted tracheal tube 2 cm Advance the orogastric tube 7 cm
[2025-01-14] MEDS: CALCIUM GLUCONATE 10% INJ 1 GM/10 ML VIAL IV (13:26)
[2025-01-14 13:45] LABS: Base Excess -26 (-3-3); HCO3 7 mEq/L (20-26); Inspired Oxygen, FIO2 100 %; O2 Saturation 13 % (91-98); PCO2 42 mmHg (32.0-48.0)
[2025-01-14 13:50] LABS: Allen Test Performed/OK; PO2 16 mmHg (83-108); Puncture Site Site Not Noted; pH, Arterial 6.81 (7.35-7.45)
--- NOTE | 2025-01-14 14:13 | PC.SS ---
Update; SS responded to code blue initiated on patient. Medical Team initiating CPR. SS contacted Patient's surrogate decision maker to provide update. SS translated on behalf of ICU resident. SS relayed to surrogate decision maker medical team response to code blue, to include initiation of CPR. Surrogate medical decision maker confirmed to sustain full code status on the patient. ICU resident confirmed need for emergent dialysis. SS relayed recommendation to the patient's brother who granted permission to proceed with emergent dialysis. SS informed patient's brother of need to be available by phone if there are any changes to the patient's current condition. Patient's brother acknowledge availability by phone as needed.
--- NOTE | 2025-01-14 14:16 | PC.NURSE ---
Per MD French infuse cryo nowno need for pt vitals. BP low despite increase in vasopressor titration.
[2025-01-14 14:23] LABS: Hematocrit 12.2 % (36.0-46.0)
[2025-01-14] MEDS: EPINEPHrine in NS 4 MG IVPB 4 MG/250 ML BAG 45.75 MG IV (14:30)
[2025-01-14 14:33] LABS: Hemoglobin 3.6 g/dL (12.0-16.0)
[2025-01-14] MEDS: EPINEPHrine INJ 0.1 MG/ML SYRINGE 10ML 1 MG IVP (14:33)
--- NOTE | 2025-01-14 14:36 | XR_ITS ---
Examination: AP chest single view Technique one AP portable supine chest single view Date and time: January 14 2025 1454 hours, comparison January 14, 2025 1325 hours INDICATIONS: Post line placement, dialysis catheter FINDINGS: Right internal jugular temporary dialysis catheter tip SVC satisfactory position Tracheal tube tip 8 mm above adrian Orogastric tube in the stomach Extensive bilateral pneumonia Layered right pleural fluid at least moderate IMPRESSION: Right internal jugular temporary dialysis catheter tip satisfactory position, no pneumothorax
[2025-01-14 14:42] LABS: Reflex Lactate? Y
--- NOTE | 2025-01-14 14:43 | PD.INTPROC ---
PROCEDURES: Procedure Date / Time 01/14/25 1443 Arterial Line Indication(s): frequent arterial line sampling, hypoxic resp failure, shock and inability to monitor non-invasive BP Informed consent obtained: procedure done urgently Time out done, and the following verified: correct patient, side and site, procedure and patient position Technique used: guide wire technique Post-Procedure: line sutured into place and dry sterile dressing placed Patient tolerated procedure: well EBL(ml): 25 Complications: excessive bleeding Site: right (axillary artery) Procedure comment: attempted R and L femoral artery with arterial flow obtained but unable to thread the guidwire. Brachial artery attempted but unsuccesful. Axillary arterial line on R placed
--- NOTE | 2025-01-14 14:51 | PD.RESPROC ---
PROCEDURES: Procedure Date / Time 01/14/25 1451 Procedure Narrative Procedure Narrative: Rt IJV Dialysis cath placement A time out was performed. My hands were washed immediately prior to the procedure. I wore a surgical cap, mask with protective eyewear, full gown and sterile gloves throughout the procedure. The patient was placed in Trendelenburg position. Right chest region was prepped using chlorhexidine scrub and draped in sterile fashion using a full drape and sterile probe cover and sterile gel employed. The medial and lateral heads of the sternocleidomastoid muscle were identified as was the carotid pulse. The Right Internal Jugular vein was identified using the ultrasound. Anesthesia was achieved over the vein using 1% lidocaine. Using real-time out of plane guidance, the introducer needle was inserted into the Rt Internal Jugular vein under direct ultrasound visualization. Venous blood was withdrawn. The syringe was removed and a guidewire was advanced into the introducer needle. The guidewire was visualized in the Internal Jugular Vein by ultrasound. A small incision was made at the skin surface with a scalpel and the introducer needle was exchanged for a dilator over the guidewire. After appropriate dilation was obtained, the dilator was exchanged over the wire for a central venous catheter. The wire was removed and the catheter was sutured in place. A sterile sorbaview shield was placed over the catheter at the insertion site after using dilator. The patient tolerated the procedure without any hemodynamic compromise. At time of procedure completion, all ports aspirated and flushed properly. Post-procedure chest x-ray is pending at this time. Estimated blood loss is <5cc. -- Proceedure performed under the supervision of ICU attending,Dr Manolo Ryan MD,PGY3 Attending note I was present at bedside for the procedure and available throughout
[2025-01-14] MEDS: Norepinephrine/D5W 8mg/250ml 8 MG/250 ML BAG 171.563 MG IV (14:52)
[2025-01-14 15:07] LABS: Lactic Acid, 3 HR > 31.0 mMol/L (0.4-2.0)
[2025-01-14 15:08] LABS: Basophils # (Auto) 0.0 Thou/mm3 (0.0-0.2); Basophils % (Auto) 0 % (0-2.5); Eosinophils # (Auto) 0.0 Thou/mm3 (0.0-0.5); Eosinophils % (Auto) 0 % (0-10); Immature Granulocytes Auto 0.15 Thou/mm3 (0.00-0.00); Lymphocytes # (Auto) 1.0 Thou/mm3 (1.0-4.8); Lymphocytes % (Auto) 21 % (10-50); Mean Corpuscular HGB Conc 29.0 g/dl (31.0-37.0); Mean Corpuscular Hemoglobin 27.3 pg (25.0-35.0); Mean Corpuscular Volume 94 fL (80-100); Monocytes # (Auto) 0.3 Thou/mm3 (0.0-0.8); Monocytes % (Auto) 7 % (0-12); Neutrophils # (Auto) 3.2 Thou/mm3 (1.8-7.7); Neutrophils % (Auto) 69 % (37-80); Nucleated Red Blood Cell # 0.70 Thou/mm3 (0.00-0.00); Nucleated Red Blood Cell % 15 /100 WBC (0); RDW Standard Deviation 50.4 fL (36.4-46.3); Red Blood Count 1.98 Miln/mm3 (4.00-5.20); White Blood Count 4.7 Thou/mm3 (3.6-11.0)
[2025-01-14 15:20] LABS: Hematocrit 18.6 % (36.0-46.0)
[2025-01-14 15:22] LABS: Hemoglobin 5.4 g/dL (12.0-16.0); Platelet Count 17 Thou/mm3 (140-440)
[2025-01-14 15:23] LABS: Slide Review Platelets confirmed
[2025-01-14 15:34] LABS: Alanine Aminotransferase 400 U/L (10-49); Albumin, Serum 2.0 gm/dL (3.5-5.0); Albumin/Globulin Ratio 1.7 (1.2-2.2); Alkaline Phosphatase 92 U/L (46-116); Anion Gap 40 (7-16); BUN/Creatinine Ratio 10 Ratio (12-20); Bilirubin,Total 2.3 mg/dL (0.3-1.2); Blood Urea Nitrogen 21 mg/dL (9-23); Calcium 7.6 mg/dL (8.3-10.6); Calcium (Corrected) 9.2 mg/dL (8.5-10.1); Chloride 98 mMol/L (98-107); Creatinine (Component) 2.2 mg/dL (0.6-1.3); Estimated Creatinine Clearance 24.2 mL/min (>60); Globulin 1.2 gm/dL (2.3-3.5); Glucose 361 mg/dL (74-106); Magnesium 2.2 mg/dL (1.6-2.6); Osmolality,Calculated 312 (275-295); Potassium 5.2 mMol/L (3.4-5.1); Sodium 148 mMol/L (136-145); Total Protein 3.2 gm/dL (5.7-8.2); eGFR 27 See Note
[2025-01-14 15:45] LABS: Carbon Dioxide < 10.0 mMol/L (20.0-31.0)
[2025-01-14 15:50] LABS: Phosphorous 12.5 mg/dL (2.4-5.1)
[2025-01-14] MEDS: Norepinephrine/D5W 8mg/250ml 8 MG/250 ML BAG 285.938 MG IV (16:00)
[2025-01-14 16:18] LABS: Aspartate Amino Transferase 4424 U/L (0-34)
[2025-01-14] MEDS: Norepinephrine/NS 16mg/250ml 16 MG/250 ML BAG 142.969 MG IV (16:35)
--- NOTE | 2025-01-14 16:35 | PC.NURSE ---
PT STARTED ON TABLO. PRBCS INFUSED PRIOR TO TABLO PER MD FRAUSTO. DESPITE LOW BP PRIORITY IS TO INFUSE ALL PRBCS. PT CURRENTLY BLEEDING FROM RIGHT FEMORAL SITE AND OG TUBE HAS 400 OUTPUT OF BRIGHT RED BLOOD. PER MD FRAUSTO THIS IS EMERGENT INFUSION OF BLOOD AND OK TO TRANSFUE MUT[place]LE AT ONE TIME. tWO PRBCS CURENTLY RUNNING THORUGH ACCESS. WILL RUN ADDDITIONAL TWO USING TABLO. MD IBARRA AT BEDSIDE GIVEN ORDER TO INCREASE UF TO REMOVE GIVEN PRBCS.
--- NOTE | 2025-01-14 17:14 | ESCONSULT_ITS ---
History of Present Illness Data of Consult Consult date: 01/14/25 Requesting Physician: Adilene French MD Primary Care Provider: Physician No Primary/Family Consult Narrative Reason for consult: NEHEMIAS, metabolic acidosis, anemia History of present illness: Chart review done. Patient currently on ventilator. Intubated, sedated. Ms. Garcia is a 44-year-old lady with no past medical history documented was brought to the emergency department by EMS found altered. Blood sugars apparently was 29. 2 A of D50 were given and route. Patient also lost her pulses and she had a CPR performed and subsequently was intubated. Blood pressure was significantly low and was started on pressors and fluids. Patient was hypothermic and eventually placed on heated blanket. In the ER blood pressure was 63/25, heart rate 137 and hypothermic. In the ED, patient's blood pressure was 63/25, heart rate 137, respiratory rate 15 and temperature is 96.3. Patient was intubated and mechanically ventilated. Labs revealed White count 8.4, hemoglobin 3.4--> downtrended to 5.4. Platelet count from 84--> 17. INR from 1.9-2.5. Fibrinogen 88, D-dimer> 3820. ABGs reveal pH 6.72--> 6.81. pCO2 44. pO2 60. Bicarb 17 chemistry panel showed initial sodium 139--> 148. Potassium 4.9--> 5.2. Bicarb less than 10. Anion gap increased to 40. BUN 21. Creatinine jumped up from 1.6-2.2. GFR 27. Blood glucose 361. Lactic acid from 27-31. Phosphorus 12.5. T. bili 2.3. AST from 1092--> 4045. Ammonia 577. Troponin I 0.100--> 0.138. Albumin 2.0. EtOH 292.6. Hep panel showed hep C antibody reactive. Head CT showed no acute pathology. Chest x-ray showed opacity in the right lung likely aspiration. CT abdomen showed bibasilar pneumonia, large right pleural effusion, cirrhosis with abnormal radiodensity throughout the liver. Possible hepatic mets. Mild ascites. Fluid distended small bowel loops. Air distended right colon. Chest x-ray showed significant bilateral pneumonia. Blood cultures pending as well as sputum cultures. Patient is admitted to ICU for acute encephalopathy likely in the setting of decompensated liver cirrhosis, acute GI bleed and alcoholic hepatitis. During the day course patient was significantly oozing blood from all orifices. She had oozing from central lines. No urine output. Nephrology consultation was requested in view of NEHEMIAS, intractable metabolic acidosis and a significant lactic acidosis. Patient currently seen in ICU. On the ventilator. On 3 pressors which are maxed out. So far patient received 8 pints of blood, FFP, cryo. Dr. Newell did scope and did 1 banding. Brother has POA and consented for dialysis. CRRT was initiated after Vas-Cath was placed by ICU team. Patient extremely unstable hemodynamically even on CRRT. cc:: cc: Adilene French MD Review of Systems Review of Systems ROS Unobtainable: unobtainable due to medical condition and due to endotracheal tube Past Medical History Past Medical History CARDIAC: Negative Congestive Heart Failure GENITOURINARY: Negative Renal Disease ENDOCRINE: Negative Diabetes Mellitus Type 1 or Diabetes Mellitus Type 2 OTHER HISTORY: Positive Blood Transfusions; Negative Blood Transfusion Reaction Social History SMOKING STATUS: Unknown if ever smoked ALCOHOL LAST INTAKE: Unknown Meds Home Medications and Allergies Allergies Allergy/AdvReac Type Severity Reaction Status Date / Time No Known Drug Allergies Allergy Verified 01/14/25 04:40 Exam Vital Signs Temp Pulse Resp BP Pulse Ox O2 Del Method FiO2 35.4 C L 88 40 H 66/29 L 95 Mechanical Ventilation 100 01/14/25 14:45 01/14/25 14:45 01/14/25 14:45 01/14/25 14:45 01/14/25 12:50 01/14/25 07:25 01/14/25 12:50 Narrative Exam GENERAL APPEARANCE: Sick looking lady with multiple drips hanging in ICU. Orotracheal intubation noted. Patient has a significant bleeding coming out of the mouth oozing from femoral catheter, IJ catheter. On CRRT NECK: Neck supple, no JVD or bruit CARDIOVASCULAR: Heart regular, no murmurs LUNGS/CHEST: Chest clear to auscultation. No rales, rhonchi, wheezing ABDOMEN: Soft, nontender, nondistended. No masses. Normal bowel sounds. EXTREMITIES: No edema, clubbing or cyanosis. SKIN: Patient has multiple ecchymosis and bleeding from all IV sites MUSCULOSKELETAL: In bed NEUROLOGICAL : Intubated, sedated Results Labs 01/14/25 18:08 01/14/25 14:56 Labs: Short CBC 01/14/25 01/14/25 01/14/25 Range/Units 04:30 08:15 11:40 WBC 8.4 7.6 7.2 (3.6-11.0) Thou/mm3 Hgb 3.4 L* 9.1 L D 8.3 L (12.0-16.0) g/dL Hct 13.3 L* 32.4 L D 28.1 L (36.0-46.0) % Plt Count 84 L 68 L 55 L (140-440) Thou/mm3 01/14/25 Range/Units 14:00 WBC (3.6-11.0) Thou/mm3 Hgb 3.6 L* D (12.0-16.0) g/dL Hct 12.2 L* (36.0-46.0) % Plt Count (140-440) Thou/mm3 BMP 01/14/25 01/14/25 04:30 08:15 Sodium 139 135 L Potassium 4.9 4.9 Chloride 99 101 Carbon Dioxide < 10.0 L* < 10.0 L* BUN 17 19 Creatinine 1.6 H 1.8 H Glucose 245 H 123 H D Calcium 8.0 L 8.5 Cardiac Enzymes 01/14/25 01/14/25 01/14/25 Range/Units 04:30 08:15 11:40 Troponin I 0.022 0.100 H* 0.138 H* (0.0-0.045) ng/mL Liver Function 01/14/25 01/14/25 Range/Units 04:30 08:15 Total Bilirubin 3.9 H 4.0 H (0.3-1.2) mg/dL AST 1092 H* 4045 H* (0-34) U/L ALT 167 H 530 H* (10-49) U/L Alkaline Phosphatase 169 H 194 H D (46-116) U/L Albumin 2.2 L 2.4 L (3.5-5.0) gm/dL ABG Interpretation ABG results: 01/14/25 01/14/25 01/14/25 06:38 09:16 13:39 ABG pH 6.72 L* 6.83 L* D 6.81 L* ABG pCO2 44 26 L D 42 D ABG pO2 54 L* 95 D 16 L* D ABG HCO3 6 L* 4 L* 7 L* ABG O2 Saturation 61 L 93 13 L ABG Base Excess -28 L -28 L -26 L Assessment & Plan Assessment and plan (1) Acute renal failure (ARF): Status: Acute Assessment and plan: Owing to hemodynamic instability, worsening lactic acidosis and electrolyte imbalance-decided to proceed with continuous dialysis. Vas-Cath placed by ICU team. Tablo/CRRT ordered. CRRT for 24 hours Blood flow 150-180 Dialysate flow 100 Saline flush 80-100 4K 3.5 calcium 40 bicarbonate No UF Citrasate dialysate no heparin Renal panel every 6 hours (2) Lactic acidosis: Status: Acute (3) Coma: Status: Acute (4) Upper gastrointestinal bleed: Status: Acute (5) Hypovolemia: Status: Acute (6) Anemia: Status: Acute (7) Cardiopulmonary arrest: Status: Acute (8) Hypovolemic shock: Status: Acute Additional Assessment & Plan Additional Plan: Patient seems to be in multisystem organ failure. DIC with bleeding everywhere. History of liver cirrhosis with varices. Hematemesis noted. Patient received multiple blood products. On maxed out 3 pressors and unable to maintain blood pressure. Not sure if she will tolerate CRRT overnight. Will monitor closely. Prognosis extremely guarded. Family aware. Spoke to DOCTOR ASSISTANT, ICU team and Dr. French critical care time spent more than 45 minutes regarding plan of care and disease management. Thank you Adilene Allowing me to participate in the care of Ms. Garcia
[2025-01-14 17:35] LABS: Base Excess -18 (-3-3); HCO3 11 mEq/L (20-26); Inspired Oxygen, FIO2 100 %; O2 Saturation 76 % (91-98); PCO2 37 mmHg (32.0-48.0)
[2025-01-14 17:37] LABS: Allen Test Not Performed; PO2 42 mmHg (83-108); Puncture Site Arterial Line; pH, Arterial 7.10 (7.35-7.45)
[2025-01-14] MEDS: EPINEPHrine in NS 4 MG IVPB 4 MG/250 ML BAG 183 MG IV (17:41)
[2025-01-14 17:50] LABS: LDH (Lactate Dehydrogenase) 3837 U/L (120-246)
--- NOTE | 2025-01-14 17:55 | PC.NURSE ---
PER MD VASOPRESSORS MAXED OUT RATES RUNNING. PT BP DROPPPING AFTER BLOOD PRODUCTS INFUSED. PER MD WASIQ NO NEED TO DECREASE UF GOAL. PER MD TO PUT ORDERS FOR METHYLEN EBLUE ADN ALBUMIN. PT UNSTABLE AND MUTLPIE DRIPS RUNNING AT THIS TIME. RENETTA RUNNNNG WITHOUT ISSUES.
[2025-01-14 18:24] LABS: Lactate (Lactic Acid) 11.6 mMol/L (0.4-2.0)
[2025-01-14 18:27] LABS: Hematocrit 39.6 % (36.0-46.0); Hemoglobin 13.0 g/dL (12.0-16.0)
[2025-01-14] MEDS: WATER IV (18:27)
[2025-01-14] MEDS: METHYLENE BLUE IV (18:27)
[2025-01-14] MEDS: DEXTROSE 5% IV (18:27)
[2025-01-14] MEDS: CALCIUM CHLORIDE 10% INJ 10 ML SYRG 20 ML IV (18:39)
[2025-01-14 18:48] LABS: Acetaminophen 2.7 mcg/mL (10.0-20.0); Salicylate < 3.0 mg/dL
[2025-01-14 18:53] LABS: Troponin I 0.519 ng/mL (0.0-0.045)
--- NOTE | 2025-01-14 18:55 | EVENTNT_ITS ---
Documentation for date of: 01/14/25 Event Note Event Note: Arrived in ICU at 6:45 during CODE BLUE (third one for the day). ICU day shift resident plastic and reconstructive surgeon with family (brother) in Goals of care dicsussion. I took over GOC discussion with family at 18:48 - Discussed extensively with juan seaman (point of care and decision maker). Family was counseled on worsening patient condition, patient did have an arterial flow at the end 8mins of code, however pulse remains very faint, still intubated and unresponsive. All questions and concerns were addressed during the discussion, family showed full understanding of the situation. GOC concluded with brother deciding to make patient DNR and switching to comfort care. Patient to remain on comfort care starting 18:55 on 01/14/2025. Will inform family if status changes. Plan of care discussed with attending Dr Acevedo, - Ralph Malagon M.D. PGY3 Disclaimer: Minor errors in architectural design lecturer may be present as this note was dictated using voice recognition software.
--- NOTE | 2025-01-14 19:30 | PC.NURSE ---
Pt to be transported to [facility] per pt's brother.
--- NOTE | 2025-01-14 19:30 | PD.RESEVENT ---
Documentation for date of: 01/14/25 Event Note Event Note: Code BLUE: Code blue was called at 6:35. Patient had a PEA despite being maxed out on epinephrine, levo and vasopressin and 5 rounds of CPR with epinephrine and 5 ampuoles of bicarbonate were given alongwith calcium chloride.BG were 222 mg/dl. Goals of care was performed with patients brother on phone call and he was informed that patient developed multi-organ failure and at this point at irreverisble point despite all the measures including CRRT. He opted for comfort care which was started by night resident. Night resident will follow with the orders and Patients brother will come to see her tomorrow morning. Patient was discussed with vice president of nursing,Dr Manolo Ryan MD PGY3
[2025-01-14 19:39] LABS: Ammonia 317 uMol/L (11-32)
--- NOTE | 2025-01-14 19:41 | PD.DDS ---
Documentation for date of: 01/14/25 Summary Date and Time Date of admission: 01/14/25 07:57 Additional Data Attending physician: Adilene French MD Visit Providers Provider Primary care physician: Physician No Primary/Family Consults: 01/14/25 08:03 Consult to Gastroenterology Stat Comment: Acute GI bleed Consulting Provider: Marvin Newell 01/14/25 14:07 Consult to Nephrology Stat Comment: Urgent dialysis Consulting Provider: Ruth Hernandez Discharge Plan Prescriptions/Referrals Referrals: No Primary/Family,Physician [Primary Care Provider] Patient/Caregiver Discharge Instructions Print Language: Singaporean
--- NOTE | 2025-01-14 19:41 | PD.DPN ---
Documentation for date of: 01/14/25 Pronouncement Note Date and Time of Date of : 01/14/25 Time of : 19:38 Contributing Factors (1) Cardiopulmonary arrest: Summary Additional details: PRONOUNCEMENT NOTE Called to see patient B.M. Patient was switched to comfort care as per family's wishes at 18:55 At 19:35 : Patient unresponsive to verbal or physical stimuli. Absent heart sounds. Breath sounds present due to MV, which was turned off and was absent there after. Absent peripheral pulses. Pupils fixed and dilated. Patient pronounced at 19:38 PM. Next of kin/family notified over call. All concerns addressed. MALLORIE Lane present at bedside during phone call. - Ralph Malagon MD (PGY 3) Additional Data Confirmation of : no pulse, no heart sounds and pupils fixed and dilated Family: contacted Additional persons at bedside: other Attending physician: Josiah Acevedo MD Was code activated?: No Autopsy requested?: No Advance directives: No
--- NOTE | 2025-01-14 20:47 | PC.NURSE ---
pt arrived to ICU at 0828 infusing levophed and vasopressin , on ventilator @100 fi02 unable to obtain non invasive blood pressure and Pulse oxymetry. intensivists and residents made multiple attempts to insert arterial line but were unsuccessful. multiple blood products given (see Tar). EGD done at bedside due to bleeding. Code blue activated at 1345, see code sheet. epinephrine infusion started. Dr ricardo and Dr pereyra inserted arterial line and dialysis line . dialysis started at 1630. blood pressures were unstable and deteriorating , providers notified and at bedside. Code blue activated at 1836. Rosc achieved at 1846, care handed off to social worker aide. donor network called at 1850. critical values reported to providers at bedside throughout the shift
--- NOTE | 2025-01-14 20:51 | PC.NURSE ---
Called Meche from [facility] and notified of patient 24 hours within admission
--- NOTE | 2025-01-14 21:13 | PC.NURSE ---
called donor network for asystole referral, they will call back for possible tissue donation. 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
[2025-01-14 21:14] LABS: Reflex Lactate? Y
--- NOTE | 2025-01-14 22:03 | PC.NURSE ---
[facility] arrived @ 215 Left with patient and belongings @ [id number]
--- NOTE | 2025-01-15 06:33 | PD.DDS ---
Documentation for date of: 01/15/25 Summary Date and Time Date of admission: 01/14/25 07:57 Summary Hospital Course: This patient is a 44-year-old female with unknown past medical history was brought in by EMS on 01/14/2025 with chief complaint of altered mental status. Based on EMS and nursing from the ER, patient called EMS that she was not feeling well and while EMS went to see the patient they found her altered with a blood sugar of 29. 2 ampoules of D50 were given. Patient lost her pulses while en route to the ER and CPR was performed and they achieved ROSC. Patient was found obtunded in the ED with a GCS of 3 and was intubated to protect airway. Patient also rec narcan. Her blood pressure was unrecordable and was found to be 63/25 with pulse 137 temperature 96.3. Patient was eventually placed on Elizabeth hugger and started on levo and vasopressin with right femoral IJ line. Patient was bleeding from OG tube while seen during assessment. Patient received 2 units of PRBC in the ED. Limited history available. PMH unknown PSH unknown SH: Drinks alcohol moderately Allerg: unknown Home meds: unknown Patient's brother, Virgil's point of contact at [phone]. In the ED, patient's blood pressure was 63/25, heart rate 137, respiratory rate 15 and temperature is 96.3. Patient was intubated and mechanically ventilated. Labs revealed White count 8.4, hemoglobin 3.4--> downtrended to 5.4. Platelet count from 84--> 17. INR from 1.9-2.5. Fibrinogen 88, D-dimer> 3820. ABGs reveal pH 6.72--> 6.81. pCO2 44. pO2 60. Bicarb 17 chemistry panel showed initial sodium 139--> 148. Potassium 4.9--> 5.2. Bicarb less than 10. Anion gap increased to 40. BUN 21. Creatinine jumped up from 1.6-2.2. GFR 27. Blood glucose 361. Lactic acid from 27-31. Phosphorus 12.5. T. bili 2.3. AST from 1092--> 4045. Ammonia 577. Troponin I 0.100--> 0.138. Albumin 2.0. EtOH 292.6. Hep panel showed hep C antibody reactive. Head CT showed no acute pathology. Chest x-ray showed opacity in the right lung likely aspiration. CT abdomen showed bibasilar pneumonia, large right pleural effusion, cirrhosis with abnormal radiodensity throughout the liver. Possible hepatic mets. Mild ascites. Fluid distended small bowel loops. Air distended right colon. Chest x-ray showed significant bilateral pneumonia. Blood cultures pending as well as sputum cultures. Patient is admitted for acute encephalopathy likely in the setting of decompensated liver cirrhosis, acute GI bleed and alcoholic hepatitis. Patient developed multi-organ failure, DIC, and irreversible shock that was not responsive to pressors. The night resident was called to see patient B.M. Patient was switched to comfort care as per family's wishes at 18:55 At 19:35 : Patient unresponsive to verbal or physical stimuli. Absent heart sounds. Breath sounds present due to MV, which was turned off and was absent there after. Absent peripheral pulses. Pupils fixed and dilated. Patient pronounced at 19:38 PM. Next of kin/family notified over call. All concerns addressed. MALLORIE Lane present at bedside during phone call. Diagnosis #Acute encephalopathy likely multifactorial DDx: Metabolic due to hypoglycemia toxic due to alcohol, ischemic, hyperammonemia #Hyperamonemia #Shock likely mixed hypovolemic and distributive DDx: Blood loss due to GI bleed in the setting of decompensated liver cirrhosis, infection possibly GI tract #PEA #NSTEMI type II likely supply/demand ischemia #Lactic acidosis, mixed likely type A and type B #Intubated and mechanically ventilated for airway protection #Aspiration pneumonia #Large right-sided pleural effusion DDx: Aspiration pneumonia, acute metabolic encephalopathy #Decompensated liver cirrhosis #Coagulopathy and elevated T. bili #Ascites #Hypoalbuminemia #Esophageal varices post banding #Dilated Rt colon #Alcoholic hepatitis #Hep C antibody positive #Mixed acidosis, high anion gap metabolic acidosis plus non-anion gap metabolic acidosis with non compensatory respiratory acidosis DDx: Lactic acidosis, alcohol induced, GI losses, possible RTA #NEHEMIAS likely prerenal DDx: Blood loss, liver failure, DIC #Hypernatremia #Hyperkalemia #Hyperphosphatemia #Acute blood loss anemia with hemorrhagic shock #Esophageal varices post banding #Thrombocytopenia #Hypocalcemia DDx: Esophageal varices due to decubs liver cirrhosis due to alcohol, DIC #DIC #Hypoglycemia #Bruising and bleeding from right side femoral line Case discussed with my senior resident Dr. Ryan. Amina Ramirez, DO PGY 1 Additional Data Confirmation of as documented by pronouncing clinician: no pulse, no respirations, no heart sounds and pupils fixed and dilated Family: contacted Attending physician: Adilene French MD Was code activated?: No Visit Providers Provider Primary care physician: Physician No Primary/Family Consults: 01/14/25 08:03 Consult to Gastroenterology Stat Comment: Acute GI bleed Consulting Provider: Marvin Newell 01/14/25 14:07 Consult to Nephrology Stat Comment: Urgent dialysis Consulting Provider: Ruth Hernandez Diagnosis PCOD Cause of : Cardiopulmonary arrest Contributing Factors (1) Acute renal failure (ARF): (2) Lactic acidosis: (3) Coma: (4) Upper gastrointestinal bleed: (5) Hypovolemia: (6) Anemia: (7) Cardiopulmonary arrest: (8) Hypovolemic shock: Discharge Plan Plan Patient Disposition: Disposition Comment: to [facility] Prescriptions/Referrals Referrals: No Primary/Family,Physician [Primary Care Provider] Patient/Caregiver Discharge Instructions Print Language: [place] Verdean
[2025-01-22 06:42] LABS: Haptoglobin* <10 mg/dL (43-212)
== END 2025-01-14 19:38 | disposition expired | DRG 432 ==
LOC: SERX 06:39 → S2SX 11:34 → SERHOLD 01-16 06:32 → S2SX 01-16 06:33
PROVIDERS: Specialist; Student in an Organized Health Care Education/Training Program; Admitting Provider Internal Medicine; Emergency Provider Emergency Medicine; Visit Provider Internal Medicine
PROC: 06L38CZ Occlusion of Esophageal Vein with Extraluminal Device, Via Natural or Artificial Opening Endoscopic (ICD-10-PCS; CPT 43239; principal; 2025-01-14 15:30)
DX: K74.60 Unspecified cirrhosis of liver (principal); D65 Disseminated intravascular coagulation [defibrination syndrome]; G93.41 Metabolic encephalopathy; J69.0 Pneumonitis due to inhalation of food and vomit; R57.1 Hypovolemic shock; I85.11 Secondary esophageal varices with bleeding; I21.A1 Myocardial infarction type 2; D62 Acute posthemorrhagic anemia; E87.0 Hyperosmolality and hypernatremia; E87.4 Mixed disorder of acid-base balance; N17.9 Acute kidney failure, unspecified; J90 Pleural effusion, not elsewhere classified; F10.10 Alcohol abuse, uncomplicated; B19.20 Unspecified viral hepatitis C without hepatic coma; E83.51 Hypocalcemia; E87.5 Hyperkalemia; E88.09 Other disorders of plasma-protein metabolism, not elsewhere classified; E83.39 Other disorders of phosphorus metabolism; E86.1 Hypovolemia; K70.11 Alcoholic hepatitis with ascites; E16.2 Hypoglycemia, unspecified; K72.90 Hepatic failure, unspecified without coma; R57.8 Other shock; Z51.5 Encounter for palliative care; I46.8 Cardiac arrest due to other underlying condition
CPT/HCPCS: 36415; 36600; 70450; 71045; 74176; 80053; 80069; 80074; 80307; 80320; 80329; 81001; 82105; 82140; 82436; 82803; 83010; 83605; 83615; 83735; 84100; 84133; 84300; 84484; 84703; 85007; 85014; 85018; 85025; 85027; 85379; 85384; 85610; 85730; 86850; 86900; 86901; 86920; 86923; 86927; 86965; 87040; 87081; 87086; 87205; 87400; 87811; 93005; 94002; 94640; 96365; 96375; 99285; 99292; A4314; A4649; A9270; J0168; J0171; J0612; J2354; J2598; J3490; J7050; J7120; P9012; P9016; P9035; P9047; P9060; Q9968; G0480; P0947